=== PATIENT | male | born 1970 | race African-American/Black ===

== ENCOUNTER 2018-07-01 01:00 | Inpatient (IN) | payer MEDICAID ==
[2018-07-01] VITALS (7 sets, daily range): BP systolic 80–147; BP diastolic 30–88
[~2018-07-01] VITALS: Ht 177.8 cm; Wt 80.7 kg
--- NOTE | 2018-07-01 01:20 | NUR ---
Dr. Galindo evaluating patient
[2018-07-01] MEDS ORDERED: KETOROLAC 30 MG/ML VIAL IVP ONE (01:25)
[2018-07-01] MEDS ORDERED: NACL 0.9% 1,000 ML IV SCH ×3 (01:25→17:35)
--- NOTE | 2018-07-01 01:50 | NUR ---
48/M BIBA. BYSTANDER CALLED 911, PT WAS FOUND IN STREETS, PT C/O LOSS OF APPETITE, N/V/D, AND REPORTS BLE PAIN. PT AOX4, GCS 15, SKIN DUSKY DRY AND WARM, RR EVEN AND UNLABORED. LUNG SOUNDS CLEAR BL. BS ACTIVE X4, ABD FLAT FIRM NONTENDER. PT WITH HX OF SCABIES (5 YEARS AGO), ISOLATION PRECAUTIONS INITIATED. HX ANKYLOSING SPONDITITIS, CHROHN'S, IBD, COLON CA, COLON RESECTION (2010), SCABIES
--- NOTE | 2018-07-01 01:50 | NUR ---
PT TAKEN TO BED 1
--- NOTE | 2018-07-01 02:20 | NUR ---
EMT DOING EKG AT BEDSIDE.
--- NOTE | 2018-07-01 02:22 | NUR ---
EKG PERFORMED AT BEDSIDE. PT COVERED IN GOWN AND BLANKET DURING PROCEDURE
--- NOTE | 2018-07-01 02:33 | NUR ---
Pt report given to AMARIS PEDRO. Transfer of care at this time.
[2018-07-01 02:34] LABS: BASOPHILS # (AUTO) 0.1 K/uL (0.00-0.22); BASOPHILS % (AUTO) 0.7 % (0.0-2.0); EOSINOPHILS # (AUTO) 0.1 K/uL (0-0.4); EOSINOPHILS % (AUTO) 1.8 % (0.0-4.0); HEMATOCRIT 22.8 % (36-52); HEMOGLOBIN 7.8 g/dL (12.0-18.0); LYMPHOCYTES # (AUTO) 1.6 K/uL (2.0-11.5); LYMPHOCYTES % (AUTO) 20.2 % (20.5-51.1); MEAN CORPUSCULAR HEMOGLOBIN 39 pg (27-31); MEAN CORPUSCULAR HGB CONC 34 g/dL (33-37); MEAN CORPUSCULAR VOLUME 113.3 fL (80-94); MONOCYTES # (AUTO) 1.1 K/uL (0.8-1.0); MONOCYTES % (AUTO) 13.9 % (1.7-9.3); NEUTROPHILS # (AUTO) 5.1 K/uL (1.8-7.7); NEUTROPHILS % (AUTO) 63.4 % (42.2-75.2); RED BLOOD CELL COUNT(AUTO) 2.01 MIL/uL (4.20-6.10); WHITE BLOOD COUNT (AUTO) 8.1 K/uL (4.8-10.8)
[2018-07-01 02:48] LABS: PROTHROMBIN TIME 21.5 secs (10.8-13.4)
[2018-07-01 02:50] LABS: ANION GAP 19.2 (8-16); CARBON DIOXIDE 25.2 mmol/L (21-32); CREATININE 0.5 mg/dL (0.7-1.3); TOTAL BILIRUBIN 12.6 mg/dL (0.0-1.0)
[2018-07-01 02:55] LABS: POTASSIUM 1.4 mmol/L (3.5-5.1)
[2018-07-01 02:57] LABS: PLATELET COUNT (AUTO) 57 K/uL (140-450)
[2018-07-01 02:58] LABS: RED CELL DISTRIBUTION WIDTH 29.5 % (11.6-13.7)
[2018-07-01] MEDS ORDERED: NACL 0.9% 2,000 ML IV ONE (03:00)
[2018-07-01] MEDS ORDERED: POTASSIUM CHLORIDE 10 MEQ TABER PO ONE (03:00)
[2018-07-01 03:26] LABS: ACETAMINOPHEN < 0.5 ug/ml (10-30); SALICYLATE < 2.8 mg/dL (2.8-20.0)
[2018-07-01] MEDS ORDERED: PIPERACILLIN/TAZOBACTAM 3.375 GM in DEXTROSE 5% 50 ML IV ONE (03:40)
[2018-07-01] MEDS ORDERED: POTASSIUM CHL 30 MEQ/ D5-1/2NS 1,000 ML IV ONE (03:45)
[2018-07-01] MEDS ORDERED: PIPERACILLIN/TAZOBACTAM 3.375 GM VIAL IV ONE (04:02)
[2018-07-01] MEDS ORDERED: MORPHINE SULFATE 2 MG/ML SYR IVP PRN (04:10)
[2018-07-01] MEDS ORDERED: ONDANSETRON 4 MG/2 ML VIAL IM/IVP PRN (04:10)
[2018-07-01] MEDS ORDERED: DOCUSATE SODIUM 100 MG GELCAP PO PRN (04:10)
[2018-07-01] MEDS ORDERED: ACETAMINOPHEN 325 MG TAB PO PRN (04:10)
[2018-07-01] MEDS ORDERED: MAG SULF 2000 MG/WATER PREMIX 100 ML IV ONE (04:10)
[2018-07-01] MEDS ORDERED: HYDROcodone/APAP 7.5/325 MG 1 TAB PO PRN (04:10)
[2018-07-01] MEDS ORDERED: QUET200T PO (04:32)
[2018-07-01] MEDS ORDERED: LORazepam 2 MG/ML VIAL IVP PRN (04:35)
[2018-07-01 04:40] LABS: PHOSPHORUS 1.7 mg/dL (2.5-4.9); THYROID STIMULATING HORMONE 2.2 uIU/mL (0.34-3.74)
[2018-07-01 04:41] LABS: CHOL/HDL RATIO 7.4 (1-4.5)
--- NOTE | 2018-07-01 05:05 | NUR ---
RECEIVED PT FROM ER VIA HATTIE, PT AWAKE,ALERT X 4. PT NON-AMBULATORY DUE TO GENERALIZED WEAKNESS. RECEIVED WITH MG SO4 INFUSING WELL ON LEFT AC G 20. NO D5% KCL RUNNING AT THIS TIME. SKIN ASSESSMENT DONE .POC REVIEWED. ORIENTED TO UNIT. FALL RISK PROTOCOL IN PLACE. BED ALARM ON; CALL LIGHT W/IN REACH WILL CONTINUE TO MONITOR
--- NOTE | 2018-07-01 05:15 | NUR ---
Patient will be admitted to care of Dr. Brennan. Admited to TELE. Will go to room 113. Belongings list completed. Report to AMARIS Laguerre.
--- NOTE | 2018-07-01 05:44 | NUR ---
DR. GARCIA INTERVIEWED PT.FOR CT SCAN OF THE ABDOMEN ON TEMPORARY NPO UNTIL CT DONE.
[2018-07-01] MEDS: FOLIC ACID 5 MG/ML SYR IM SCH (06:00)
[2018-07-01] MEDS ORDERED: QUEtiapine FUMARATE 100 MG TAB PO SCH ×2 (06:00→21:00)
[2018-07-01] MEDS ORDERED: MAG SULF 2000 MG/WATER PREMIX 50 ML IV SCH ×3 (06:00→08:30)
[2018-07-01] MEDS ORDERED: THIAMINE 200 MG/2 ML VIAL IM SCH (06:00)
--- NOTE | 2018-07-01 06:18 | NUR ---
IVF D5 W/ KCL STILL ONGOING= NON ADMINISTERED NS AT 100ML/HR
[2018-07-01] MEDS ORDERED: SODIUM PHOS / POTASSIUM PHOS 1 PKT PDR PO SCH (07:00)
--- NOTE | 2018-07-01 07:10 | NUR ---
ENDORSED BEDSIDE REPORT TO AM SHIFT NURSEBRI FOR CONTINUITY OF CARE. PT ASLEEP IN BED RIGHT NOW, NO COMPLAINTS AT THIS TIME.NO SOB NOTED.
--- NOTE | 2018-07-01 07:11 | NUR ---
GOT BEDSIDE REPORT FROM AMARIS DELGADO. PATIENT ON TELE MONITOR AND CONTACT PRECAUTIONS FOR POSSIBLE SCABIES. GENERALIZED SCARS AND FLAKY SKIN ON BACK, BUE, BLE. PATIENT UNABLE TO AMBULATE D/T GENERALIZED WEAKNESS. FALL RISK PROTOCOL IN PLACE. IV ON L AC 20 G INFSUSING D5 KCL AT 100. IV ASYMPTOMATIC PATENT AND INTACT. BED IN LOW POSITION, CALL LIGHT WITHIN REACH. WILL CONTINUE TO MONITOR.
[2018-07-01 07:14] LABS: HEMOGLOBIN 7.9 g/dL (12.0-18.0); MEAN CORPUSCULAR HEMOGLOBIN 39 pg (27-31); MEAN CORPUSCULAR HGB CONC 34 g/dL (33-37); RED BLOOD CELL COUNT(AUTO) 2.04 MIL/uL (4.20-6.10); RED CELL DISTRIBUTION WIDTH 29.5 % (11.6-13.7); WHITE BLOOD COUNT (AUTO) 6.9 K/uL (4.8-10.8)
[2018-07-01 07:47] LABS: ANION GAP 18.5 (8-16); CREATININE 0.7 mg/dL (0.7-1.3)
[2018-07-01 07:47] LABS: MEAN CORPUSCULAR VOLUME 113.1 fL (80-94); PLATELET COUNT (AUTO) 50 K/uL (140-450)
[2018-07-01 07:48] LABS: LYMPHOCYTES % (MANUAL) 12 % (20-46)
[2018-07-01 07:49] LABS: EOSINOPHILS % (MANUAL) 2 % (0-4); MONOCYTES % (MANUAL) 9 % (5-12)
[2018-07-01 07:51] LABS: PHOSPHORUS 1.7 mg/dL (2.5-4.9)
[2018-07-01 07:55] LABS: POTASSIUM 1.5 mmol/L (3.5-5.1)
[2018-07-01] MEDS ORDERED: MULTIVITAMIN-12 10 ML in NACL 0.9% 1,000 ML IV SCH (08:00)
[2018-07-01] MEDS ORDERED: POTASSIUM CHLORIDE 10 MEQ TABER PO SCH ×2 (08:08→17:00)
[2018-07-01] MEDS ORDERED: POTASSIUM CHLORIDE 40 MEQ, LIDOCAINE 1% 25 MG in NACL 0.9% 250 ML IV SCH ×2 (08:30→12:30)
--- NOTE | 2018-07-01 08:30 | NUR ---
ATTEMPTED TO GIVE POTASSIUM PO, BUT PATIENT SPIT ONE TABLET OUT AND STATED HE CANNOT TAKE PILLS. HELD FOLIC ACID, MULTIVITAMINS, AND VIT B1 PER PHARMACIST ORDER
--- NOTE | 2018-07-01 08:31 | NUR ---
FOLIC ACID AND THIAMINE HELD. FIELD PROFESSIONAL NURSE ENDORSED TO ME THAT MED WAS UNAVAILABLE IN [facility].
--- NOTE | 2018-07-01 08:56 | NUR ---
PATIENT HAS BEEN SCREENED AND CATEGORIZED HIGH NUTRITION RISK. PATIENT WILL BE SEEN WITHIN 1-2 DAYS OF ADMISSION. 07/01/18-07/02/[address]
[2018-07-01] MEDS ORDERED: MULTIVITAMIN/MINERALS 1 TAB PO SCH ×2 (09:00)
[2018-07-01] MEDS ORDERED: THIAMINE 100 MG TAB PO SCH ×2 (09:00→16:00)
[2018-07-01] MEDS: chlordiazePOXIDE 25 MG CAP PO SCH ×3 (09:00→16:37)
[2018-07-01] MEDS ORDERED: PERMETHRIN 1% 60 ML BTL TP SCH (09:00)
[2018-07-01] MEDS ORDERED: FOLIC ACID 1 MG TAB PO SCH ×2 (09:00→16:00)
[2018-07-01] MEDS ORDERED: POTASSIUM CHLORIDE 20% 40 MEQ/15 ML UDC PO SCH (10:00)
--- NOTE | 2018-07-01 10:05 | NUR ---
ADMINISTERED SCHEDULED MEDS. PATIENT TOLERATED WELL. PHARMACIST GI SAID DR. TAMAYO WANTED TO FIRST GIVE ALL THE POTASSIUM MEDS FIRST SINCE HIS K LEVEL IS 1.5
[2018-07-01] MEDS ORDERED: PERMETHRIN 5% 60 GM TUBE TP SCH (11:00)
--- NOTE | 2018-07-01 13:05 | NUR ---
CLEANED PATIENTS SHEETS AND OTHER SOILED LINEN. PATIENT HAD BM. PATIENT CONTINUES TO HAVE BM. WILL CONTINUE TO MONITOR.
--- NOTE | 2018-07-01 14:46 | NUR ---
PATIENT SLEEPING. ON 2 L O2 VIA NC, NO DISTRESS NOTED. WILL CONTINUE TO MONITOR.
[2018-07-01] MEDS ORDERED: DEXTROSE 50% 50 ML SYR IVP SCH (15:30)
[2018-07-01] MEDS ORDERED: LORazepam 2 MG/ML VIAL IM/IVP PRN (15:45)
[2018-07-01] MEDS ORDERED: MULTIVITAMIN 1 TAB PO SCH (16:00)
--- NOTE | 2018-07-01 16:02 | NUR ---
07/01/18 RD INITIAL ASSESSMENT COMPLETED PLEASE REFER TO NUTRITION ASSESSMENT UNDER CARE ACTIVITY FOR ESTIMATED NUTRITIONAL NEEDS. 1. CONTINUE REGULAR DIET TOLERATED 2. IF PO INTAKE IS > 75% CONSIDER HEPATIC DIET 3. IBD EDUCATION WAS PROVIDED 4. ENCOURAGE PO INTAKE AND MONITOR FOR REFEEDING SYNDROME 5. RD TO FOLLOW-UP 2-3 DAYS, HIGH RISK MARITZA TRAN, RD
[2018-07-01 16:25] LABS: BASOPHILS % (AUTO) 0.9 % (0.0-2.0); EOSINOPHILS # (AUTO) 0.2 K/uL (0-0.4); EOSINOPHILS % (AUTO) 3.9 % (0.0-4.0); HEMATOCRIT 21.3 % (36-52); HEMOGLOBIN 7.2 g/dL (12.0-18.0); LYMPHOCYTES % (AUTO) 19.9 % (20.5-51.1); MEAN CORPUSCULAR HEMOGLOBIN 39 pg (27-31); MEAN CORPUSCULAR HGB CONC 34 g/dL (33-37); MONOCYTES # (AUTO) 0.5 K/uL (0.8-1.0); MONOCYTES % (AUTO) 10.7 % (1.7-9.3); NEUTROPHILS # (AUTO) 3.1 K/uL (1.8-7.7); NEUTROPHILS % (AUTO) 64.6 % (42.2-75.2); PLATELET COUNT (AUTO) 42 K/uL (140-450); RED BLOOD CELL COUNT(AUTO) 1.87 MIL/uL (4.20-6.10); RED CELL DISTRIBUTION WIDTH 29.4 % (11.6-13.7); WHITE BLOOD COUNT (AUTO) 4.8 K/uL (4.8-10.8)
[2018-07-01] MEDS ORDERED: PHYTONADIONE 10 MG in NACL 0.9% 50 ML IV SCH (16:30)
[2018-07-01 16:37] LABS: ANION GAP 20.1 (8-16); CARBON DIOXIDE 22.3 mmol/L (21-32); CREATININE 1.2 mg/dL (0.7-1.3)
[2018-07-01 16:38] LABS: POTASSIUM 2.4 mmol/L (3.5-5.1)
--- NOTE | 2018-07-01 16:38 | NUR ---
CRUSHED SCHEDULED MEDS AND MIXED WITH APPLE SAUCE. PATIENT TOLERATED WELL.
--- NOTE | 2018-07-01 16:39 | NUR ---
DR. TAMAYO AT BEDSIDE ASSESSING PATIENT AND TELLING HIM IMPORTANCE OF TAKING K MEDICATIONS FOR HIS HEART. DR STATED TO START ANOTHER IV ON PATIENT.
[2018-07-01] MEDS: BLOOD GLUCOSE MONITORING 1 DEV DEV FS SCH ×4 (16:48→19:30)
[2018-07-01 16:56] LABS: MAGNESIUM 1.7 mg/dL (1.8-2.4); PHOSPHORUS 1.6 mg/dL (2.5-4.9)
[2018-07-01] MEDS ORDERED: LACTULOSE 20 GM/30 ML UDC PO SCH (17:10)
--- NOTE | 2018-07-01 17:26 | NUR ---
BP 90/57 (66), HR 95 AND BLOOD SUGAR OF 128. EKG CURRENTLY BEING DONE.
--- NOTE | 2018-07-01 18:44 | NUR ---
PATIENT CURRENTLY ON BEDSIDE COMMODE. WILL COLLECT STOOL SAMPLE AND URINE
--- NOTE | 2018-07-01 19:25 | NUR ---
TRANSFERRED PT TO ICU ROOM 8. GAVE BEDSIDE REPORT TO AMARIS CORNELL. PATIENT ENDORSED IN STABLE CONDITION. CONSENT FORM FOR PICC LINE INSERTION AND BLOOD TRANSFUSION GIVEN TO YONNY. STATED SHE RECEIVED THEM. PATIENT BELONGINGS SENT WITH PATIENT AND MEDICATIONS IN CASSETTE. L AC 20 G ASYMPTOMATIC PATENT AND INTACT. ENDORSED BLOOD TRANSFUSION HAS NOT BEEN GIVEN AND FERRLECIT BECAUSE VIT K WAS STILL INFUSING AT TIME. Addendum: 07/01/18 at 1956 by Greta Iqbal RN STOOL SAMPLE AND URINE SAMPLE SENT TO LAB.
--- NOTE | 2018-07-01 19:25 | NUR ---
RECEIVED PT FROM [facility]. PT AOX4. ABLE TO VERBALIZE NEEDS FOLLOWS COMMANDS. ON CONTACT PRECAUTIONS FOR SCABIES. ON ROOM AIR. EVEN UNLABORED BREATHING. ST ON MONITOR. DENIES PAIN. BOWEL SOUNDS ACTIVE X4 QUADRANTS. HISTORY OF CROHNS DISEASE. WATERY STOOLS NOTED ON ADMISSION. CONTINENT TO BOWEL AND BLADDER. RAC 20 G IV NOTED. DRESSING INTACT. MULTIPLE BRUISES TO UPPER AND LOWER EXTREMITIES. BED IN LOWST POSITION WILL CONTINUE TO MONITOR.
--- NOTE | 2018-07-01 19:27 | NUR ---
PT BELONGINGS CONSIST OF LARGE PLASTIC BAG. PT CONTINUES TO EAT SUNFLOWER SEEDS DESPITE BEING ON FULL LIQUID DIET. DR. GARCIA MADE AWARE
[2018-07-01] MEDS: SODIUM FERRIC GLUCONATE 125 MG in NACL 0.9% 100 ML IV SCH (20:13)
--- NOTE | 2018-07-01 20:13 | NUR ---
PT HAD LARGE BM AT THIS TIME. PT CLEANED AND REPOSITIONED
[2018-07-01 20:17] LABS: APPEARANCE,URINE HAZY (CLEAR); BILIRUBIN,URINE 3+ (NEGATIVE); BLOOD, URINE 1+ (NEGATIVE); COLOR,URINE BROWN (YELLOW); LEUKOCYTE ESTERASE ,URINE TRACE (NEGATIVE); NITRITE, URINE POSITIVE (NEGATIVE); PH,URINE 6.5 (5.0-9.0); UGLUCOSE TRACE (NEGATIVE)
[2018-07-01 20:33] LABS: WBC,URINE 16-25 (MOD) /HPF (0-5)
[2018-07-01 20:34] LABS: HYALINE CASTS, URINE 0-10 /LPF (None Seen)
[2018-07-01 20:42] LABS: BARBITURATE, URINE NEG. ng/ml (NEG <=200); BENZODIAZEPINE, URINE NEG. ng/mL (NEG <=200); CANNABINOID, URINE NEG. ng/mL (NEG <=50); COCAINE, URINE NEG. ng/mL (NEG <=300); OPIATE, URINE NEG. ng/mL (NEG <=2000); PHENCYCLIDINE SCREEN,URINE NEG. ng/mL (NEG <=25)
[2018-07-01] MEDS: LACTULOSE 20 GM/30 ML UDC PO SCH (21:00)
--- NOTE | 2018-07-01 21:02 | NUR ---
PT REQUESTS TO USE BEDPAN AT THIS TIME
[2018-07-01] MEDS ORDERED: MULTIVITAMIN-12 10 ML, THIAMINE 100 MG, FOLIC ACID 1 MG in NACL 0.9% 1,000 ML IV SCH (21:30)
--- NOTE | 2018-07-01 21:33 | NUR ---
DR. HERRMANN AT BEDSIDE AT THIS TIME. UPDATED ON PTS CURRENT CONDITION
--- NOTE | 2018-07-01 21:40 | NUR ---
PT HAD ANOTHER BM AT THIS TIME. LIQUID STOOL NOTED. PT CLEANED AND LINENS CHANGED.
--- NOTE | 2018-07-01 22:06 | NUR ---
PICC NURSE AT BEDSIDE AT THIS TIME
[2018-07-01] MEDS ORDERED: cefTRIAXone 1,000 MG VIAL ONE (22:39)
--- NOTE | 2018-07-01 22:48 | NUR ---
PT HAD A LARGE WATERY BM AT THIS TIME. PT CLEANED AND PERICARE PROVIDED. LINENS CHANGED AT THIS TIME.
[2018-07-01 23:07] LABS: BASOPHILS % (AUTO) 0.9 % (0.0-2.0); EOSINOPHILS # (AUTO) 0.2 K/uL (0-0.4); EOSINOPHILS % (AUTO) 3.8 % (0.0-4.0); HEMATOCRIT 22.3 % (36-52); HEMOGLOBIN 7.5 g/dL (12.0-18.0); LYMPHOCYTES # (AUTO) 1.1 K/uL (2.0-11.5); LYMPHOCYTES % (AUTO) 21.1 % (20.5-51.1); MEAN CORPUSCULAR HEMOGLOBIN 38 pg (27-31); MEAN CORPUSCULAR HGB CONC 34 g/dL (33-37); MEAN CORPUSCULAR VOLUME 113.9 fL (80-94); MONOCYTES # (AUTO) 0.5 K/uL (0.8-1.0); MONOCYTES % (AUTO) 9.3 % (1.7-9.3); NEUTROPHILS # (AUTO) 3.3 K/uL (1.8-7.7); NEUTROPHILS % (AUTO) 64.9 % (42.2-75.2); PLATELET COUNT (AUTO) 48 K/uL (140-450); RED BLOOD CELL COUNT(AUTO) 1.95 MIL/uL (4.20-6.10); RED CELL DISTRIBUTION WIDTH 29.4 % (11.6-13.7); WHITE BLOOD COUNT (AUTO) 5.1 K/uL (4.8-10.8)
[2018-07-01 23:24] LABS: ANION GAP 14.8 (8-16); CARBON DIOXIDE 26.7 mmol/L (21-32); CREATININE 1.1 mg/dL (0.7-1.3)
--- NOTE | 2018-07-01 23:30 | NUR ---
PT STARTED TRANSFUSION OF 1 UNIT PRBC. NO ADVERSE REACTIONS NOTED.
[2018-07-02] VITALS (11 sets, daily range): BP systolic 108–141; BP diastolic 69–87
--- NOTE | 2018-07-02 00:39 | NUR ---
PT CONTINUES TO BE NONCOMPLIANT AND REMOVES CARDIAC LEADS. EXPLAINED RISK VS. BENEFITS X 3. PT STILL REFUSES.
[2018-07-02 00:45] LABS: POTASSIUM 2.5 mmol/L (3.5-5.1)
[2018-07-02] MEDS: DEXTROSE 10% IV SCH ×2 (02:30→09:08)
[2018-07-02] MEDS: POTASSIUM CHLORIDE IV SCH ×2 (02:30→09:08)
[2018-07-02] MEDS: NACL IV SCH ×2 (02:30→09:08)
--- NOTE | 2018-07-02 02:30 | NUR ---
BLOOD TRANSFUSION COMPLETE. 1 UNIT PRBC INFUSED. NO ADVERSE REACTIONS NOTED
--- NOTE | 2018-07-02 02:40 | NUR ---
DR. GARCIA INFORMED OF BLOOD TRANSFUSION COMPLETED. WILL INCLUDE CBC DRAW IN AM BLOOD DRAWS
--- NOTE | 2018-07-02 05:00 | NUR ---
RT AT BEDSIDE FOR LAB DRAWS
--- NOTE | 2018-07-02 05:30 | NUR ---
AM CARE PROVIDED AT THIS TIME
--- NOTE | 2018-07-02 06:36 | NUR ---
BLOOD SUGAR 205 AT THIS TIME. NO COVERAGE NEEDED FOR INSULIN
--- NOTE | 2018-07-02 06:57 | NUR ---
DR. TAMAYO AT BEDSIDE AT THIS TIME. UPDATED ON PTS CURRENT CONDITION. WILL CONTINUE TO FOLLOW UP ANY ADDITIONAL ORDERS
[2018-07-02 07:21] LABS: BASOPHILS % (AUTO) 0.8 % (0.0-2.0); EOSINOPHILS # (AUTO) 0.2 K/uL (0-0.4); EOSINOPHILS % (AUTO) 4.6 % (0.0-4.0); HEMATOCRIT 25.4 % (36-52); HEMOGLOBIN 8.7 g/dL (12.0-18.0); LYMPHOCYTES # (AUTO) 0.9 K/uL (2.0-11.5); LYMPHOCYTES % (AUTO) 21.5 % (20.5-51.1); MEAN CORPUSCULAR HEMOGLOBIN 36 pg (27-31); MEAN CORPUSCULAR HGB CONC 34 g/dL (33-37); MEAN CORPUSCULAR VOLUME 105.6 fL (80-94); MONOCYTES # (AUTO) 0.3 K/uL (0.8-1.0); MONOCYTES % (AUTO) 7.2 % (1.7-9.3); NEUTROPHILS # (AUTO) 2.6 K/uL (1.8-7.7); NEUTROPHILS % (AUTO) 65.9 % (42.2-75.2); PLATELET COUNT (AUTO) 32 K/uL (140-450); RED BLOOD CELL COUNT(AUTO) 2.41 MIL/uL (4.20-6.10); RED CELL DISTRIBUTION WIDTH 30.5 % (11.6-13.7)
[2018-07-02 07:30] LABS: ANION GAP 11.6 (8-16); CARBON DIOXIDE 27.6 mmol/L (21-32); CREATININE 0.9 mg/dL (0.7-1.3)
[2018-07-02] MEDS ORDERED: NACL 0.9% 1,000 ML IV SCH (07:30)
[2018-07-02] MEDS ORDERED: BLOOD GLUCOSE MONITORING 1 DEV DEV FS SCH (07:30)
[2018-07-02 07:38] LABS: MAGNESIUM 1.8 mg/dL (1.8-2.4)
[2018-07-02 07:42] LABS: ALBUMIN 0.9 g/dL (3.4-5.0); BILIRUBIN,DIRECT 9.7 mg/dL (0.0-0.3); TOTAL BILIRUBIN 11.7 mg/dL (0.0-1.0)
[2018-07-02 07:51] LABS: POTASSIUM 2.2 mmol/L (3.5-5.1)
--- NOTE | 2018-07-02 08:00 | NUR ---
RECEIVED PATIENT IN BED.ENGINEERING CALLED AND WILL ADJUST THE ROOM BECAUSE ITS COLD .APPLIED 3 BLANKET TO PT.RIGHT UPPER PICC LINE WITH IVF WITH D10 AND WITH POTASSIUM 40 MEQ ONGOING.PT IS ALERT TO PERSON AND PLACE BUT NOT TO DATE AND SITUATION.REORIENTED.PT CAN VERBALIZED HIS NEED BUT KINDLY SLOW IN RESPONDING.NSR ON THE MONITOR.PT USES THE URINAL.
[2018-07-02] MEDS: chlordiazePOXIDE 25 MG CAP PO SCH ×2 (08:10→13:36)
[2018-07-02] MEDS: SPIRONOLACTONE 50 MG TAB PO SCH (08:10)
[2018-07-02] MEDS: FOLIC ACID 1 MG TAB PO SCH (08:11)
[2018-07-02] MEDS: POTASSIUM CHLORIDE 20% 40 MEQ/15 ML UDC PO SCH (08:12)
[2018-07-02] MEDS: THIAMINE 100 MG TAB PO SCH (08:20)
[2018-07-02] MEDS: MULTIVITAMIN/MINERALS 1 TAB PO SCH (08:20)
[2018-07-02] MEDS: LACTULOSE 20 GM/30 ML UDC PO SCH (08:21)
--- NOTE | 2018-07-02 08:30 | NUR ---
PT WITH DRY SCAB 1 CM X 1 CM AT RIGHT HIP WITH BROWNISH DISCOLORATION AROUND IT .MILLIE INTACT .RIGHT BUTTOCKS WITH MULTIPLE WOUND WITH LARGEST 1.2 CM X 0.8.CM RED IN COLOR .LEFT BUTTOCK WITH 0.5 X 1.2 CM -RED IN COLOR.LEFT SECOND TOE SCAB 0.5 X 0.5 CM.BLACK IN COLOR.DR TAMAYO MADE AWARE AND WILL PUT WOUND CONSULT.NO DRAINAGE NOTED TO ALL WOUNDS.
[2018-07-02] MEDS ORDERED: THIAMINE 100 MG TAB PO SCH (09:00)
--- NOTE | 2018-07-02 09:00 | NUR ---
DR TAMAYO MADE AWARE PT REFUSED TO SIGN CONSENT FOR CT SCAN CONSENT.WILL TRY AGAIN LATER
[2018-07-02] MEDS ORDERED: SODIUM PHOS / POTASSIUM PHOS 1 PKT PDR PO SCH (09:30)
[2018-07-02] MEDS ORDERED: POTASSIUM CHLORIDE 40 MEQ, LIDOCAINE 1% 25 MG in NACL 0.9% 250 ML IV SCH (10:00)
--- NOTE | 2018-07-02 10:00 | NUR ---
PT REFUSED TO SIGN CONSENT OF CT SCAN .DR TAMAYO AWARE
[2018-07-02 10:07] LABS: TRANSFERRIN 89 mg/dL (200-370)
--- NOTE | 2018-07-02 11:05 | NUR ---
WOUND CARE EVALUATION NOTE: REASON FOR EVALUATION: SACRALCOCCYX WOUND SKIN ASSESSMENT DONE WITH PRIMARY RN WITH THIS 48 Y/O MALE PT ADMITTED TO [facility] WITH INITIAL DX OF BILATERAL LEG SWELLING. PAST MEDICAL HX INCLUDES, ANKYLOSING SPONDYLITIS, CHRONS�S, IBD, AND COLON CANCER IN REMISSION 2010. ALL ABOVE INFORMATION OBTAINED FROM ADMISSION H&P AND PER DR. TAMAYO HX OF SCABIES. PT IS ASLEEP MOST OF TIME DURING ASSESSMENT. WAKE UP WHEN REPOSITIONING AND C/O ARTHRITIS PAIN TO ELBOWS AND SHOULDERS. SKIN IS WARM AND DRY, MULTIPLES PIN POINTS DRY SCABS FROM NECK DOWN OF HIS BODY. BLE FEW HAIR GROWTH, +1 EDEMA. BILATERAL DORSAL PEDAL PULSES PRESENT AND NORMAL. CAPILLARY REFILLED < 2 SEC. X 10 TOES. FUNFAL LIKE TOE NAILS, THICK CALLUS BILATERAL HEELS AND DEBRIS NOTICES ON INTERSPACES PLAN OF CARE AND PRESSURE INJURY PREVENTIONS DISCUSSED WITH PRIMARY RN. INTEGUMENTARY: -INCONTINENT ASSOCIATED DERMATITIS TO RIGHT AND LEFT BUTTOCKS REDNESS, AND RADHA ANAL WITH MULTIPLE EROSIONS, THE LARGEST 1.2X0.8X0.1 CM, WEND BED ARE RED, MOIST, NO ODOR. -PRESSURE INJURY UN-STAGEABLE TO RIGHT TROCHANTER 1X1 CM, BROWN SCAB, RADHA-WOUND SKIN INTACT WITH SURROUNDING DARK BROWN DISCOLORATION INDICATED FURTHER DAMAGE -LEFT FOOT 2ND DIGIT 0.5X0.5 BROWN SCAB, RADHA-WOUND SKIN INTACT -SACRALCOCCYX BLANCHABLE REDNESS RECOMMENDATIONS: -CLEANSE RIGHT AND LEFT BUTTOCKS REDNESS, AND RADHA-ANAL AREAS WITH SOAP AND WATER, PAT DRY AND APPLY Z-GUARD, BID AND PRN IF SOILING -CLEANSE SACRALCOCCYX WITH SOAP AND WATER PAT. DRY, APPLY Z GUARD AND COVER WITH OPTIFOAM QD AND PRN IF SOILED -PAINT LEFT HIP SCAB WITH BETADINE SOLUTION BIDWC AND LEAVE IT OPEN TO AIR -OFFLOAD BILATERAL HEELS BY PLACING PILLOWS UNDER CALVES UNLESS OTHERWISE CONTRAINDICATED -PRESSURE REDISTRIBUTION SURFACE THERAPY -TURN AND REPOSITION Q2H, OFFLOAD SACRALCOCCYX BY TURNING RIGHT AND LEFT -MONITOR SKIN CONDITION EACH TIME PT IS REPOSITIONS -CONTINUE TO FOLLOW RD RECOMMENDATIONS ALL ABOVE RECOMMENDATIONS DISCUSSED WITH PRIMARY RN WILL FOLLOW UP PT Q7-10 DAYS. PLEASE CONTACT WOUND CARE NURSE FOR ANY QUESTION AND CHANGE OF WOUND CONDITION. Addendum: 07/02/18 at 1622 by Doyle Mckeon RN (Grace) CLARIFY : WRONG ENTRY TO SACRALCOCCYX. NO OPEN ACTIVE WOUND, APPLY OPTIFOAM PREVENTION. Addendum: 07/02/18 at 1658 by Doyle Mckeon RN (Grace) CLARIFICATION: -PAINT RIGHT HIP SCAB WITH BETADINE SOLUTION BIDWC AND LEAVE IT OPEN TO AIR
[2018-07-02] MEDS ORDERED: POTASSIUM PHOSPHATE 15 MM in NACL 0.9% 250 ML IV SCH (11:30)
--- NOTE | 2018-07-02 12:40 | NUR ---
SEEN BY DR. ANDRES, AWARE THAT PT. NOT SIGN THE CONSENT FOR CT.SCAN WITH CONTRAS.
--- NOTE | 2018-07-02 12:48 | NUR ---
Music Grapher Note: I met with patient at bedside. He appeared drowsy. He mumbled when he talked, therefore, it was difficult to understand him at times. He stated he has been homeless between 6-7 years. He reported he has been staying in the streets during those years. He told me he does not have any family members nor has anyone we can contact in case of an emergency. Band Attacher and/or Die Hardener will meet with patient at another time to obtain additional information and offer him community resources.
[2018-07-02] MEDS: RIFAXIMIN 550 MG TAB PO SCH ×2 (13:36→21:07)
[2018-07-02] MEDS: MUPIROCIN CA NASAL 2% 1GM TUBE NS SCH (13:37)
[2018-07-02] MEDS: CHLORHEXADINE GLUC 2% CLOTH TP SCH (13:37)
[2018-07-02] MEDS ORDERED: PROBIOTIC SCREEN 1 EA MISC MC PRN (13:40)
[2018-07-02] MEDS ORDERED: LORazepam 2 MG/ML VIAL IM/IVP PRN (16:25)
[2018-07-02] MEDS: SODIUM FERRIC GLUCONATE 125 MG in NACL 0.9% 100 ML IV SCH (17:11)
[2018-07-02] MEDS: POTASSIUM CHL 20MEQ/D5-NS 1,000 ML IV SCH (17:11)
--- NOTE | 2018-07-02 18:50 | NUR ---
NO CO PAIN NOR ANY DISCOMFORT.PT HAD LOOSE STOOL BROWNISH IN COLOR LARGE IN AMOUNT.CLEANED PATIENT.OPTIFOAM BEING APPLIED BUT PT REFUSED TO STAY IN ONE POSITION FOR A LONG TIME.WILL TRY LATER.
[2018-07-02 18:53] LABS: ANION GAP 11.1 (8-16); CREATININE 0.7 mg/dL (0.7-1.3); POTASSIUM 3.1 mmol/L (3.5-5.1)
--- NOTE | 2018-07-02 19:19 | NUR ---
REPORT GIVEN TO [place].ENDORSED TO PUT OPTIFOAM LATER WHEN PT AGREED.
--- NOTE | 2018-07-02 19:20 | NUR ---
RECEIVED REPORT FROM AM SHIFT. PT A0X4 ABLE TO VERBALIZE NEEDS. ON CONTACT PRECAUTIONS FOR MRSA AND HX SCABIES. AFEBRILE. LUNG SOUNDS CLEAR. EVEN UNLABORED BREATHING. SR ON MONITOR. DENIES CHEST PAIN. NO EDEMA. ON REGULAR DIET. ABD SOFT NONTENDER. BOWEL SOUNDS ACTIVE X 4 QUADS. DIARRHEA NOTED. CONTINENT TO URINE. IV SITE JONI PICC. DRESSING INTACT. GENERALIZED WEAKNESS NOTED. SKIN NON INTACT. BILAT BUTTOCKS OPEN WOUND. MULTIPLE SCABS THROUGHOUT BODY. BED IN LOWEST POSITION. CALL LIGHT WITHIN REACH. WILL CONTINUE TO MONITOR.
--- NOTE | 2018-07-02 19:45 | NUR ---
REGULAR DIET. TRAY AT BEDSIDE AT THIS TIME.
[2018-07-02] MEDS ORDERED: RIFAXIMIN 550 MG TAB PO SCH (21:00)
[2018-07-02] MEDS ORDERED: chlordiazePOXIDE 25 MG CAP PO SCH (21:00)
[2018-07-02] MEDS ORDERED: PANTOPRAZOLE 40 MG INJ VIAL IVP SCH (21:00)
[2018-07-02] MEDS: PANTOPRAZOLE 40 MG INJ VIAL IVP SCH (21:08)
--- NOTE | 2018-07-02 22:06 | NUR ---
PT RESTING QUIETLY IN BED. NO SIGNS OF ACUTE DISTRESS AT THIS TIME. DENIES PAIN
[2018-07-03] VITALS: BP 106/84
[2018-07-03] MEDS: Z-GUARD PASTE TP SCH ×2 (00:24→13:00)
[2018-07-03] MEDS: GAUZE TP SCH ×2 (00:24→13:00)
[2018-07-03] MEDS: HYDRAGUARD CREAM TP SCH ×2 (00:24→13:00)
--- NOTE | 2018-07-03 01:30 | NUR ---
PT RESTING QUIETY. DENIES PAIN. PICC LINE DRY AND INTACT.
--- NOTE | 2018-07-03 03:12 | NUR ---
PT AWAKE CONTINUES TO REMOVE CARDIAC LEADS, PULSE OX, AND BP CUFF. EXPLAINED RISK VS. BENEFITS X3. PT STILL REFUSES. DENIES PAIN.
[2018-07-03 04:00] VITALS: BP 161/76
[2018-07-03] MEDS: POTASSIUM CHL 20MEQ/D5-NS 1,000 ML IV SCH ×3 (04:30→16:58)
--- NOTE | 2018-07-03 05:00 | NUR ---
LAB AT BEDSIDE FOR AM BLOOD DRAWS. BLOOD EMORY VIA PICC LINE. PT TOLERATED WELL. ASEPTIC TECHNIQUE OBSERVED.
--- NOTE | 2018-07-03 05:30 | NUR ---
AM CARE PROVIDED AT THIS TIME. ZGUARD APPLIED TO BILAT BUTTOCKS. BED IN LOWEST POSITION. WILL CONTINUE TO MONITOR.
--- NOTE | 2018-07-03 06:37 | NUR ---
PT ABLE TO VERBALIZE NEEDS. AOX4. SLUGGISH IN RESPONSES.
--- NOTE | 2018-07-03 06:55 | NUR ---
TRANSFERRED PT TO MST 113. NO SIGNS OF ACUTE DISTRESS AT THIS TIME
--- NOTE | 2018-07-03 07:03 | NUR ---
RECEIVED BEDSIDE REPORT FROM ICU NURSE. PT STABLE, AWAKE, AND ALERT AND ORIENTED X3. NO SIGNS OF DISTRESS NOTED. DENIES PAIN OR SOB. NO REDNESS, SWELLING, OR INFLAMMATION NOTED ON IV SITE. CALL STILES WITHIN REACH. BED IN LOWEST POSITION, BED ALARM ON. SAFETY MEASURES IN PLACE. PLAN OF CARE REVIEWED.
[2018-07-03 07:06] LABS: BASOPHILS % (AUTO) 0.6 % (0.0-2.0); EOSINOPHILS # (AUTO) 0.1 K/uL (0-0.4); EOSINOPHILS % (AUTO) 2.5 % (0.0-4.0); HEMOGLOBIN 9.7 g/dL (12.0-18.0); LYMPHOCYTES # (AUTO) 0.7 K/uL (2.0-11.5); LYMPHOCYTES % (AUTO) 21.3 % (20.5-51.1); MEAN CORPUSCULAR HEMOGLOBIN 37 pg (27-31); MEAN CORPUSCULAR HGB CONC 35 g/dL (33-37); MEAN CORPUSCULAR VOLUME 105.8 fL (80-94); MONOCYTES # (AUTO) 0.3 K/uL (0.8-1.0); MONOCYTES % (AUTO) 9.4 % (1.7-9.3); NEUTROPHILS # (AUTO) 2.1 K/uL (1.8-7.7); NEUTROPHILS % (AUTO) 66.2 % (42.2-75.2); PLATELET COUNT (AUTO) 22 K/uL (140-450); RED BLOOD CELL COUNT(AUTO) 2.65 MIL/uL (4.20-6.10); RED CELL DISTRIBUTION WIDTH 31.2 % (11.6-13.7); WHITE BLOOD COUNT (AUTO) 3.2 K/uL (4.8-10.8)
[2018-07-03 07:23] LABS: ANION GAP 10.9 (8-16); CARBON DIOXIDE 26.4 mmol/L (21-32); CREATININE 0.6 mg/dL (0.7-1.3); MAGNESIUM 1.7 mg/dL (1.8-2.4); PHOSPHORUS 1.1 mg/dL (2.5-4.9); POTASSIUM 3.3 mmol/L (3.5-5.1)
[2018-07-03 08:00] VITALS: BP 99/75
[2018-07-03] MEDS: PANTOPRAZOLE 40 MG INJ VIAL IVP SCH ×3 (09:00→23:15)
[2018-07-03] MEDS: SPIRONOLACTONE 50 MG TAB PO SCH (09:00)
[2018-07-03] MEDS: FOLIC ACID 1 MG TAB PO SCH ×2 (09:00→10:56)
[2018-07-03] MEDS: POTASSIUM CHLORIDE 20% 40 MEQ/15 ML UDC PO SCH ×2 (09:00→10:56)
[2018-07-03] MEDS: MULTIVITAMIN/MINERALS 1 TAB PO SCH ×2 (09:00→10:56)
[2018-07-03] MEDS: THIAMINE 100 MG TAB PO SCH ×2 (09:00→10:57)
[2018-07-03] MEDS: RIFAXIMIN 550 MG TAB PO SCH ×3 (09:00→23:12)
--- NOTE | 2018-07-03 09:30 | NUR ---
TEMPERATURE OF 85.[address] TAMAYO. PHYSICIAN WILL SEE PT.
--- NOTE | 2018-07-03 09:43 | NUR ---
07/03/18 RD FOLLOW UP COMPLETED PLEASE REFER TO NUTRITION PROGRESS NOTE UNDER CARE ACTIVITY FOR ESTIMATED NUTRITION NEEDS. RD RECOMMENDATIONS: 1.RECOMMEND INITIATING VITAMIN C AND ZINC FOR WOUND HEALING SUPPORT. 2.CONTINUE REGULAR DIET TOLERATED. 3.IF PO INTAKE IS > 75% CONSIDER CHANGING DIET TO HEPATIC DIET. 4.ENCOURAGE PO INTAKE AND MONITOR FOR REFEEDING SYNDROME. 5.RD TO FOLLOW-UP 2-3 DAYS, HIGH RISK. JONNY CARMONA, , RDN
--- NOTE | 2018-07-03 10:00 | NUR ---
PATIENT REFUSED SCHEDULED MEDICATIONS. DR BELKIS INGRAM.
[2018-07-03] MEDS ORDERED: POTASSIUM PHOSPHATE 15 MM in NACL 0.9% 250 ML IV ONE (11:15)
[2018-07-03] MEDS ORDERED: MAG SULF 2000 MG/WATER PREMIX 50 ML IV ONE (11:15)
[2018-07-03 12:00] VITALS: BP 94/66
[2018-07-03] MEDS ORDERED: POTASSIUM PHOSPHATE 15 MM in NACL 0.9% 250 ML IV SCH ×2 (12:52→12:55)
[2018-07-03] MEDS: CHLORHEXADINE GLUC 2% CLOTH TP SCH (13:00)
[2018-07-03] MEDS: MUPIROCIN CA NASAL 2% 1GM TUBE NS SCH (13:00)
--- NOTE | 2018-07-03 13:29 | NUR ---
ADMINISTERED SCHEDULED MAGNESIUM, PT TOLERATED WELL. PT REFUSED ALL OTHER SCHEDULED MEDICATIONS. TORI ANTONIO GIVEN TO PT.
--- NOTE | 2018-07-03 13:30 | NUR ---
DR TAMAYO MADE AWARE OF BP 94/66. WILL RECEIVE ORDERS.
[2018-07-03] MEDS ORDERED: NACL 0.9% 250 ML IV ONE (13:35)
[2018-07-03 16:00] VITALS: BP 96/55
[2018-07-03] MEDS: SODIUM FERRIC GLUCONATE 125 MG in NACL 0.9% 100 ML IV SCH (16:52)
--- NOTE | 2018-07-03 17:08 | NUR ---
ADMINISTERED SCHEDULED MEDICATIONS, PT TOLERATED WELL. NO OTHER NEEDS AT THIS TIME.
[2018-07-03] MEDS: HYDROcodone/APAP 5/325 MG 1 TAB TAB PO PRN (18:27)
--- NOTE | 2018-07-03 19:10 | NUR ---
ENDORSED PT TO AMARIS FAULKNER FOR CONTINUITY OF CARE. PT STABLE.
--- NOTE | 2018-07-03 19:20 | NUR ---
RECEIVED ENDORSEMENT FROM ENEDINA JIANG RN DAYSHIFT NURSE AT BEDSIDE FOR CONTINUITY OF CARE, PT INSTABLE CONDITION.
[2018-07-03 20:00] VITALS: BP 78/51
--- NOTE | 2018-07-03 21:00 | NUR ---
PT TURNED , CHANGED AND REPOSITIONED. GIVEN DUE MEDS OF PROTONIX AND RIFAXIMIN WELL ROCEPHIN IV ABT. PT NATHANIEL ANY DISCOMFORT. BED LOW AND ALL FALLS PRECAUTIONS IN PLACE.
[2018-07-03 22:14] LABS: BASOPHILS % (AUTO) 0.4 % (0.0-2.0); EOSINOPHILS # (AUTO) 0.1 K/uL (0-0.4); EOSINOPHILS % (AUTO) 2.3 % (0.0-4.0); HEMATOCRIT 25.7 % (36-52); HEMOGLOBIN 8.9 g/dL (12.0-18.0); LYMPHOCYTES # (AUTO) 0.7 K/uL (2.0-11.5); LYMPHOCYTES % (AUTO) 16.5 % (20.5-51.1); MEAN CORPUSCULAR HEMOGLOBIN 37 pg (27-31); MEAN CORPUSCULAR HGB CONC 35 g/dL (33-37); MEAN CORPUSCULAR VOLUME 106.4 fL (80-94); MONOCYTES # (AUTO) 0.4 K/uL (0.8-1.0); MONOCYTES % (AUTO) 10.3 % (1.7-9.3); NEUTROPHILS # (AUTO) 2.9 K/uL (1.8-7.7); NEUTROPHILS % (AUTO) 70.5 % (42.2-75.2); PLATELET COUNT (AUTO) 30 K/uL (140-450); RED BLOOD CELL COUNT(AUTO) 2.42 MIL/uL (4.20-6.10); RED CELL DISTRIBUTION WIDTH 31.9 % (11.6-13.7); WHITE BLOOD COUNT (AUTO) 4.2 K/uL (4.8-10.8)
[2018-07-03 22:29] LABS: ANION GAP 9.2 (8-16); CARBON DIOXIDE 27.3 mmol/L (21-32); CREATININE 0.7 mg/dL (0.7-1.3); POTASSIUM 3.5 mmol/L (3.5-5.1)
[2018-07-03 22:36] LABS: MAGNESIUM 2.1 mg/dL (1.8-2.4); PHOSPHORUS 1.5 mg/dL (2.5-4.9)
[2018-07-04] VITALS: BP_SYST 105; BP_SYST 88; BP_DIAS 61; BP_DIAS 71
--- NOTE | 2018-07-04 00:55 | NUR ---
PT C/O 5/10 GENERALIZED PAIN, GIVEN PO/PRN NORCO.
[2018-07-04] MEDS: HYDROcodone/APAP 5/325 MG 1 TAB TAB PO PRN ×3 (00:57→21:36)
[2018-07-04] MEDS: GAUZE TP SCH ×2 (01:00→13:59)
[2018-07-04] MEDS: Z-GUARD PASTE TP SCH ×2 (01:00→10:33)
[2018-07-04] MEDS: HYDRAGUARD CREAM TP SCH ×2 (01:00→10:33)
--- NOTE | 2018-07-04 01:00 | NUR ---
PT IN BED ALL FALLS PRECAUTIONS IN PLACE, BED LOW AND SIDE RAILS UP X2. PT REMAINS ON WOUND BED. PT TURNED AND REPOSITIONED. PT V/S FOLLOWS T 97.8 P 104 R 20 B/P IS 90/60 02 93% ON ROOM AIR.
[2018-07-04 04:00] VITALS: BP 105/71
--- NOTE | 2018-07-04 06:00 | NUR ---
PT HAD BM X1 AND PICC LINE DRESSING SOILED WELL. PT TURNED, CHANGED AND REPOSITIONED PT GIVEN NEW LINENS AND NEW DRESSING FOR PICC LINE PROVIDED. PICC LINE FLUSHED PATENT AND LAB DRAWS DONE AT BEDSIDE.
[2018-07-04] MEDS: POTASSIUM CHL 20MEQ/D5-NS 1,000 ML IV SCH (06:01)
[2018-07-04 06:37] LABS: BASOPHILS % (AUTO) 0.2 % (0.0-2.0); EOSINOPHILS # (AUTO) 0.1 K/uL (0-0.4); EOSINOPHILS % (AUTO) 1.9 % (0.0-4.0); HEMOGLOBIN 8.9 g/dL (12.0-18.0); LYMPHOCYTES % (AUTO) 14.5 % (20.5-51.1); MEAN CORPUSCULAR HEMOGLOBIN 37 pg (27-31); MEAN CORPUSCULAR HGB CONC 34 g/dL (33-37); MEAN CORPUSCULAR VOLUME 107.4 fL (80-94); MONOCYTES # (AUTO) 0.8 K/uL (0.8-1.0); MONOCYTES % (AUTO) 12.7 % (1.7-9.3); NEUTROPHILS # (AUTO) 4.6 K/uL (1.8-7.7); NEUTROPHILS % (AUTO) 70.7 % (42.2-75.2); PLATELET COUNT (AUTO) 26 K/uL (140-450); RED BLOOD CELL COUNT(AUTO) 2.42 MIL/uL (4.20-6.10); RED CELL DISTRIBUTION WIDTH 32.5 % (11.6-13.7); WHITE BLOOD COUNT (AUTO) 6.6 K/uL (4.8-10.8)
[2018-07-04 07:02] LABS: MAGNESIUM 1.9 mg/dL (1.8-2.4); PHOSPHORUS 1.6 mg/dL (2.5-4.9)
[2018-07-04 07:06] LABS: ANION GAP 10.8 (8-16); CARBON DIOXIDE 26.2 mmol/L (21-32); CREATININE 0.8 mg/dL (0.7-1.3)
--- NOTE | 2018-07-04 07:30 | NUR ---
REPORT GIVEN TO MARTHA RN DAYSHIFT NURSE AT BEDSIDE FOR CONTINUITY OF CARE.
--- NOTE | 2018-07-04 07:31 | NUR ---
RECEIVED BEDSIDE REPORT FROM SR. UNIX SYSTEM ADMINISTRATOR NURSE AT BEDSIDE FOR CONTINUITY OF CARE. PT LETHARGIC. RECEIVED CALL FROM LAB AT 0728, BLOOD GLUCOSE 43. WILL ASSESS AND MEDICATE NEEDED. NO SIGNS OF DISTRESS NOTED AT THE MOMENT ON ROOM AIR. PICC LINE INTACT, ASYMPTOMATIC AND INFUSING IVF WELL. VERBALIZED PLAN OF CARE TO PATIENT, HE DID NOT VERBALIZE UNDERSTANDING. UPDATED BOARD. SAFETY AND ISOLATION PRECAUTIONS IN PLACE, CALL STILES WITHIN REACH. BED IN LOWEST POSITION, BED ALARM ON. WILL CONTINUE TO MONITOR PATIENT. Addendum: 07/04/18 at 1535 by Douglas Lundy RN BLOOD GLUCOSE OF 47.
[2018-07-04] MEDS: DEXTROSE 50% 50 ML SYR IVP PRN (07:39)
--- NOTE | 2018-07-04 07:39 | NUR ---
GLUCOSE CHECK AT BEDSIDE 43, DEXTROSE GIVEN. PATIENT TOLERATED IT. WILL REASSESS PATIENT AND CHECK GLUCOSE LEVEL. WILL CONTINUE TO MONITOR PATIENT.
[2018-07-04 08:00] VITALS: BP 102/70
--- NOTE | 2018-07-04 08:04 | NUR ---
DOCTORS DOING ROUNDS. PATIENT CURRENTLY GETTING FED BY SHELL REPRINT OPERATOR. PATIENT MORE AWAKE AND ALERT. ALL NEEDS MET AT THIS TIME. WILL CONTINUE TO MONITOR PATIENT.
[2018-07-04] MEDS: FOLIC ACID 1 MG TAB PO SCH (09:00)
[2018-07-04] MEDS: SPIRONOLACTONE 50 MG TAB PO SCH (09:00)
[2018-07-04] MEDS: RIFAXIMIN 550 MG TAB PO SCH ×2 (09:00→21:35)
[2018-07-04] MEDS: THIAMINE 100 MG TAB PO SCH (09:00)
[2018-07-04] MEDS: POTASSIUM CHLORIDE 20% 40 MEQ/15 ML UDC PO SCH (09:00)
[2018-07-04] MEDS: MULTIVITAMIN/MINERALS 1 TAB PO SCH (09:00)
[2018-07-04] MEDS: PANTOPRAZOLE 40 MG INJ VIAL IVP SCH ×2 (09:21→21:35)
--- NOTE | 2018-07-04 09:21 | NUR ---
PATIENT REFUSED ALL ORAL MEDICATIONS, INFORMED HIM OF NECESSITY FOR THEM. PATIENT STATED THAT HE WAS "TIRED, AND WANTED TO REST". PATIENT DID AGREE TO IV MEDICATION. ORDERED MEDICATION GIVEN. PATIENT TOLERATED IT. ALL NEEDS MET AT THIS TIME. NO COMPLAINTS NOTED. RESPIRATIONS EVEN AND UNLABORED ON ROOM AIR. SAFETY AND CONTACT PRECAUTIONS IN PLACE, CALL LIGHT WITHIN REACH, WILL CONTINUE TO MONITOR PATIENT.
--- NOTE | 2018-07-04 10:25 | NUR ---
PATIENT HAD BM. PATIENT CLEANED, CHANGED, LINENS CHANGED, PATIENT REPOSITIONED IN BED TO OFFSET PRESSURE AREAS. PATIENT STATED HE WANTED TO BE "LEFT ALONE, SO I CAN REST". RN VERBALIZED UNDERSTANDING. SAFETY, CONTACT, PRECAUTIONS IN PLACE, CALL LIGHT WITHIN REACH, WILL CONTINUE TO MONITOR PATIENT.
--- NOTE | 2018-07-04 10:49 | NUR ---
BREANNE FROM CT CALLED ABOUT CT PROCEDURE. INFORMED HIM OF PATIENT'S WISHES AND CURRENT SLEEPING MOOD. BREANNE AGREED WILL TALK TO PATIENT AFTER LUNCH. SAFETY AND CONTACT PRECAUTIONS IN PLACE, CALL LIGHT WITHIN REACH, WILL CONTINUE TO MONITOR PATIENT.
[2018-07-04 12:00] VITALS: BP 90/63
--- NOTE | 2018-07-04 12:05 | NUR ---
PATIENT SLEEPING BUT AROUSABLE. ASKED PATIENT FOR CONSENT FOR CT. PATIENT DID NOT ANSWER. AFTER MULTIPLE ATTEMPS TO OBTAIN CONSENT, PATIENT JUST STATED, "THANK YOU, MA'AM". SHIP'S OFFICER, NATALY FARRAR. BREANNE, ACCESS SERVICES LIBRARIAN CALLED, UPDATED HIM ABOUT PATIENT'S ANSWER. HE VERBALIZED UNDERSTANDING. WILL CONTINUE TO MONITOR PATIENT.
[2018-07-04] MEDS: CHLORHEXADINE GLUC 2% CLOTH TP SCH (13:59)
[2018-07-04] MEDS: MUPIROCIN CA NASAL 2% 1GM TUBE NS SCH (13:59)
--- NOTE | 2018-07-04 13:59 | NUR ---
CALLED CLEANING STAFF SUPERVISORSTACY RAYMUNDO AT EXT: [phone], INFORMED HIM OF PATIENT'S AGREEABLE TO SIGNING CONSENT BUT STATED "I'M NOT ALL AWAKE YET TO SIGN". PATIENT WAS WEAK, CONSENT NOT OBTAINED AT THIS MOMENT. PATIENT FURTHER STATED THAT HE "DID NOT WANT IT DONE TODAY, MAYBE TOMORROW". BREANNE AWARE, INFORMED DR. TAMAYO, SHE IS ALSO AWARE. SAFETY AND CONTACT PRECAUTIONS IN PLACE, CALL LIGHT WITHIN REACH, WILL CONTINUE TO MONITOR PATIENT.
--- NOTE | 2018-07-04 14:35 | NUR ---
PATIENT MEDICATED AT 1421 FOR GENERALIZED PAIN 09/13. BP 95/65 HR 94. PATIENT TOLERATED IT WELL. PATIENT HAD LARGE SOFT BM. PATIENT CLEANED AND CHANGED AND REPOSITIONED FOR COMFORT AND TO OFFLOAD PRESSURE AREAS. PATIENT NOW SETTLE IN BED, NO COMPLAINTS AT THIS TIME. SAFETY AND CONTACT PRECAUTIONS IN PLACE, CALL LIGHT WITHIN REACH, WILL CONTINUE TO MONITOR PATIENT.
[2018-07-04 16:00] VITALS: BP 90/58
--- NOTE | 2018-07-04 16:10 | NUR ---
BP 90/[address] TAMAYO AWARE. STATED THAT IF PATIENT'S BP SYSTOLIC < 90, INFORM RESIDENT TO BOLUS PATIENT. RN VERBALIZED UNDERSTANDING. PATIENT NOW RESTING IN BED WITH EYES CLOSED, NO COMPLAINTS AT THIS TIME. WILL CONTINUE TO MONITOR PATIENT.
[2018-07-04] MEDS: SODIUM FERRIC GLUCONATE 125 MG in NACL 0.9% 100 ML IV SCH (16:34)
--- NOTE | 2018-07-04 18:10 | NUR ---
PATIENT HAD BM. PATIENT CLEANED, CHANGED, LINENS CHANGED, PATIENT REPOSITIONED IN BED TO OFFSET PRESSURE AREAS. PATIENT NOW RESTING IN BED, NO COMPLAINTS AT THIS TIME. SAFETY, CONTACT, PRECAUTIONS IN PLACE, CALL LIGHT WITHIN REACH, WILL CONTINUE TO MONITOR PATIENT.
--- NOTE | 2018-07-04 19:23 | NUR ---
GAVE REPORT TO PSYCHOLOGIST EXPERIMENTAL RN AT BEDSIDE FOR CONTINUITY OF CARE. PATIENT RESTING WITH EYES CLOSED, IN STABLE CONDITION.
--- NOTE | 2018-07-04 19:24 | NUR ---
RECEIVED ENDORSEMENT OF CARE FROM MARTHA RN DAYSHIFT NURSE, PT IN STABLE CONDITION IN BED ALL SAFETY AND CONTACT PRECAUTIONS N PLACE.
--- NOTE | 2018-07-04 20:21 | NUR ---
PT IN BED ALL FALLS AND CONTACT PRECAUTIONS N PLACE. PT AOX2-3. PT WAS TURNED , CHANGED AND REPOSITIONED. PITTING EDEMA IN LOWER LEGS +4. PT HAD A SMALL SOFT BM, Z GUARD APPLIED TO BUTTOCKS . V/S FOLLOWS T 97.9 P 95 R 18 B/P 112/73.
[2018-07-04 20:25] VITALS: BP 112/73
[2018-07-04] MEDS: NACL 0.45% 1,000 ML IV SCH (20:41)
[2018-07-04] MEDS: BLOOD GLUCOSE MONITORING 1 DEV DEV FS SCH (21:20)
[2018-07-05] VITALS: BP 109/69
--- NOTE | 2018-07-05 00:22 | NUR ---
PT IN BED ALL FALLS AND CONTACT PRECAUTIONS IN PLACE, PT IS WET BUT REFUSES TO TURN. V/S FOLLOW T 97.0 P 92 R 18 B/P 109/69 02 96% SOME RELIEF NOTED FORM ERICKACO. ALL REQUESTED NEEDS ATTENDED.
[2018-07-05] MEDS: GAUZE TP SCH ×2 (01:31→13:29)
[2018-07-05] MEDS: Z-GUARD PASTE TP SCH ×2 (01:33→13:30)
[2018-07-05] MEDS: HYDRAGUARD CREAM TP SCH ×2 (01:33→13:30)
--- NOTE | 2018-07-05 02:29 | NUR ---
PT IN BED SLEEPING ALL CONTACT AND FALLS PRECAUTIONS IN PLACE.
[2018-07-05 04:00] VITALS: BP 106/71
--- NOTE | 2018-07-05 04:15 | NUR ---
PT IN BED AND REPOSITIONED SELF. PT DECLINES TO BE CHANGED. LINENS ARE SOILED , EVEN WITH ENCOURAGEMENT, PT REFUSES TO BE CHANGED. HE SAID IM TIRED I NEED REST I LIVE ON THE STREETS YOU KNOW. ASKED PT IF WE CAN RETURN IN A LITTE WHILE TO CHANGE HIM. PT SAID OK V/S FOLLOWS T 97.2 P 98 R 18 B/P 106/71 02 98% ON R/A.
[2018-07-05] MEDS: DEXTROSE 50% 50 ML SYR IVP PRN (06:02)
[2018-07-05] MEDS: BLOOD GLUCOSE MONITORING 1 DEV DEV FS SCH ×4 (06:06→21:52)
[2018-07-05] MEDS: NACL 0.45% 1,000 ML IV SCH (06:06)
--- NOTE | 2018-07-05 06:07 | NUR ---
BLOOD DRAWS AT BEDSIDE, FINGERSTICK IS 40, PT RECEIVED DEXTROSE IV PUSH ORDERED. AND GIVEN JUICE AT BEDSIDE. PT AWAKE AND AOX2 AT BASELINE. WILL CONTINUE TO MONITOR BLOOD SUGAR.
[2018-07-05 07:03] LABS: BASOPHILS % (AUTO) 0.4 % (0.0-2.0); EOSINOPHILS # (AUTO) 0.2 K/uL (0-0.4); EOSINOPHILS % (AUTO) 2.6 % (0.0-4.0); HEMOGLOBIN 9.2 g/dL (12.0-18.0); LYMPHOCYTES # (AUTO) 1.6 K/uL (2.0-11.5); LYMPHOCYTES % (AUTO) 18.7 % (20.5-51.1); MEAN CORPUSCULAR HEMOGLOBIN 37 pg (27-31); MEAN CORPUSCULAR HGB CONC 34 g/dL (33-37); MEAN CORPUSCULAR VOLUME 108.2 fL (80-94); MONOCYTES # (AUTO) 0.9 K/uL (0.8-1.0); MONOCYTES % (AUTO) 11.2 % (1.7-9.3); NEUTROPHILS # (AUTO) 5.6 K/uL (1.8-7.7); NEUTROPHILS % (AUTO) 67.1 % (42.2-75.2); PLATELET COUNT (AUTO) 34 K/uL (140-450); RED CELL DISTRIBUTION WIDTH 32.2 % (11.6-13.7); WHITE BLOOD COUNT (AUTO) 8.4 K/uL (4.8-10.8)
[2018-07-05 07:08] LABS: ANION GAP 8.2 (8-16); CARBON DIOXIDE 27.9 mmol/L (21-32); CREATININE 0.8 mg/dL (0.7-1.3); POTASSIUM 4.1 mmol/L (3.5-5.1)
[2018-07-05 07:09] LABS: MAGNESIUM 1.8 mg/dL (1.8-2.4); PHOSPHORUS 1.7 mg/dL (2.5-4.9)
--- NOTE | 2018-07-05 07:40 | NUR ---
FINGER RESTICK ID [id number] . PT DID NOT YET DRINK JUICE AT BEDSIDE. PT TOOK 1 SMALL BOX OF JUICE. ENDORSED TO AM SHIFT TO F/U WITH BLOOD SUGARS. CARE ENDORSED TO LIANET RN DAYSHIFT NURSES. PT IN BED RESTING BUT AROUSABLE TO LIGHT TOUCH.
--- NOTE | 2018-07-05 07:42 | NUR ---
RECEIVED HAND OFF REPORT FROM ESTIMATOR PROJECT MANAGER NURSE. PT AWAKE IN BED, AGITATED.
[2018-07-05] MEDS: DEXT 5% /NACL 0.9% 1,000 ML IV SCH ×2 (07:50→17:21)
--- NOTE | 2018-07-05 07:50 | NUR ---
D5NS IVF STARTED AT 60ML/HR PER ORDER, PICC LINE FLUSHED, SITE WNL, WILL CONTINUE TO MONITOR
[2018-07-05 08:00] VITALS: BP 94/58
--- NOTE | 2018-07-05 08:11 | NUR ---
FINGER STICK BLOOD SUGAR 64, PT ENCOURAGED TO EAT, BREAKFAST TRAY AT BEDSIDE, OFFERED TO HELP SIT UP TO EAT BUT PT SCREAMS "LEAVE ME ALONE, I WANT TO GET SOME SLEEP", EXPLAINED PREVIOUS LOW BLOOD SUGAR AND IMPORTANCE OF EATING TO KEEP GLUCOSE UP, PT STATES THAT HE WILL EAT.
[2018-07-05] MEDS: FOAM DRESSING TP SCH (09:00)
[2018-07-05] MEDS: SPIRONOLACTONE 50 MG TAB PO SCH (09:00)
[2018-07-05] MEDS: PANTOPRAZOLE 40 MG INJ VIAL IVP SCH ×2 (09:13→21:21)
[2018-07-05] MEDS: FOLIC ACID 1 MG TAB PO SCH (09:13)
[2018-07-05] MEDS: HYDROcodone/APAP 5/325 MG 1 TAB TAB PO PRN ×2 (09:14→22:12)
[2018-07-05] MEDS: MULTIVITAMIN/MINERALS 1 TAB PO SCH (09:14)
[2018-07-05] MEDS: THIAMINE 100 MG TAB PO SCH (09:14)
[2018-07-05] MEDS: POTASSIUM CHLORIDE 20% 40 MEQ/15 ML UDC PO SCH (09:19)
--- NOTE | 2018-07-05 09:45 | NUR ---
PROVIDED RADHA CARE TO CLIENT AFTER BOWEL MOVEMENT. AND WOUND CARE TO HIP WOUNDS. PT WAS IN ALOT OF PAIN WHILE PROVIDING CARE.
[2018-07-05] MEDS: RIFAXIMIN 550 MG TAB PO SCH ×2 (10:14→21:21)
--- NOTE | 2018-07-05 11:30 | NUR ---
FINGER STICK BLOOD GLUCOSE CHECK 76. PT LAYING ON RIGHT SIDE. PT REFUSES REPOSITIONING
[2018-07-05 12:00] VITALS: BP 100/68
--- NOTE | 2018-07-05 12:00 | NUR ---
PT REFUSING TO EAT BREAKFAST AND LUNCH. MULTIPLE STAFF MEMBERS HAVE OFFERED TO PROVIDE ASSISTANCE WITH EATING. PT REQUEST TO BE LEFT ALONE TO SLEEP
[2018-07-05] MEDS ORDERED: CHLO118S2 TP (12:17)
[2018-07-05] MEDS ORDERED: ZIN220 PO (12:17)
[2018-07-05] MEDS ORDERED: RIFA550T PO (12:17)
[2018-07-05] MEDS ORDERED: ZGUARD TP (12:17)
[2018-07-05] MEDS ORDERED: GLUC-805 FS (12:17)
[2018-07-05] MEDS ORDERED: Hydraguard TP (12:17)
[2018-07-05] MEDS ORDERED: FOLI1TAB90 PO (12:17)
[2018-07-05] MEDS ORDERED: SPIR50TA PO (12:17)
[2018-07-05] MEDS ORDERED: BACTNA NS (12:17)
[2018-07-05] MEDS ORDERED: PANT40PD7 IVP (12:17)
[2018-07-05] MEDS ORDERED: VITC500 PO (12:17)
[2018-07-05] MEDS ORDERED: MULT-1736 PO (12:17)
[2018-07-05] MEDS ORDERED: D50SYR IVP (12:17)
[2018-07-05] MEDS ORDERED: Foam Dressing TP (12:17)
[2018-07-05] MEDS ORDERED: Potassium Chloride 20% PO (12:17)
[2018-07-05] MEDS ORDERED: FERR325E14 PO (12:17)
[2018-07-05] MEDS ORDERED: Gauze TP (12:17)
[2018-07-05] MEDS ORDERED: THIA-34 PO (12:17)
[2018-07-05] MEDS ORDERED: ROC2I IV (12:21)
[2018-07-05] MEDS ORDERED: LACT10CA1 PO (12:25)
--- NOTE | 2018-07-05 13:00 | NUR ---
VITAL SIGNS TAKEN PT STABLE RESTING IN BED, PT STATED PAIN IS IMPROVING
[2018-07-05] MEDS: MUPIROCIN CA NASAL 2% 1GM TUBE NS SCH (13:29)
[2018-07-05] MEDS: CHLORHEXADINE GLUC 2% CLOTH TP SCH (13:29)
[2018-07-05] MEDS ORDERED: SODIUM PHOSPHATE 15 MMOLE in NACL 0.9% 250 ML IV SCH (13:30)
--- NOTE | 2018-07-05 13:44 | NUR ---
S.T. BEDSIDE SWALLOW EVAL COMPLETED See report. Pt refused all P.O. trials except for straw sips of water. No overt s/s aspiration observed w/ sip of water while inclined at 30 degrees due to pt's refusal to have HOB upright for P.O. intake. Pt refused P.O. trials solids and overall participation in bedside swallow eval. Recommend: 1) Continue diet and P.O. meds as tolerated. Pt's refusal of S.T. services does not make pt a strong rehab candidate. [facility] at this time. No further ST indicated at this time. Time [id number]
--- NOTE | 2018-07-05 14:44 | NUR ---
Interventional Pain Physician Note: Per Lazaro from [facility] , they don�t have a contract with [facility], unable to accept patient. Per Telma from [facility] , they don�t have a male bed available at this time. Per Tami from [facility] and [facility] , their director is reviewing inquiry and Tami will call me back with response.
--- NOTE | 2018-07-05 14:49 | NUR ---
Business Analyst Ecommerce Note: I faxed inquiry to [facility] and [facility]. I called and left a message for admission coordinator at [phone]. Per Chacho from [facility] , they don't have any male beds available at this time.
--- NOTE | 2018-07-05 15:32 | NUR ---
Hr Generalist Note: Per Michell from [facility] , they don't have any beds available at this time.
--- NOTE | 2018-07-05 15:40 | NUR ---
FREQUENT ROUNDING ON PT. PT RESTING IN BED NO COMPLAINTS OF PAIN. PT APPEARS IN NO APPARENT DISTRESS. WILL CONTINUE TO MONITOR.
--- NOTE | 2018-07-05 15:45 | NUR ---
Charrer Note: Per Princess from [facility] , their director of valuation (D.O.N) is currently in a meeting and is not able to ask director of valuation if they can accept patient or not. Princess stated she will call me back today with response.
--- NOTE | 2018-07-05 15:54 | NUR ---
Financial Sales Advisor Note: I faxed inquiry to [facility]. Per Saray from [facility] , they don't have a contract with [facility]. She reported they might be willing to do a letter of agreement (L.O.A.) with [facility]. She told me their preschool assistant director will review inquiry and Saray will call me back to let me know if patient is medically appropriate for their facility or not.
[2018-07-05 16:00] VITALS: BP 102/68
--- NOTE | 2018-07-05 17:15 | NUR ---
Marketing Content Specialist Note: Per Gretel from [facility] and [facility] , they cannot accept patient due to psychiatric medication and behavior concerns.
[2018-07-05] MEDS: SODIUM FERRIC GLUCONATE 125 MG in NACL 0.9% 100 ML IV SCH (17:20)
--- NOTE | 2018-07-05 17:50 | NUR ---
FREQUENT ROUNDING ON PT. PT ASLEEP IN BED. CHEST RISE AND FALL NOTED. PT APPEARS IN NO APPARENT DISTRESS. IVF D51/2NS RUNNING AT 60MLS/HR. WILL CONTINUE TO MONITOR
--- NOTE | 2018-07-05 19:37 | NUR ---
ENDORSED BIOLOGY INTERN NURSE. PT IN BED STABLE. NO APPARENT DISTRESS. IVF INFUSING AT 60MLS/HR
--- NOTE | 2018-07-05 19:40 | NUR ---
Received endorsement from AM shift RN; patient laying in bed, awake. Patient A/Ox3, able to make needs known, bed bound. Introduced self, updated board. No SOB or distress noted, on room air. IV site on right upper arm, PICC line, intact. Skin excoriation on perianal area. Bed in the lowest position, call light within reach. Initial assessment done. Will continue to monitor.
[2018-07-05 20:00] VITALS: BP 104/65
--- NOTE | 2018-07-05 20:25 | NUR ---
Vitals taken, due meds give, tolerated well. Noticed patient PICC line dressing was stained. Flushed and patent. Asked patient dressing can be changed; patient verbalized "Can you just do it later in the morning?". Will continue to monitor.
[2018-07-05] MEDS ORDERED: QUEtiapine FUMARATE 100 MG TAB PO SCH (21:00)
--- NOTE | 2018-07-05 21:15 | NUR ---
BM noted at this time; patient cleaned, chux and linens changed, Z-guard applied to perianal area. Repositioned, tolerated well.
--- NOTE | 2018-07-05 22:05 | NUR ---
Frequent checks made, patient is watching TV. No distress noted.
--- NOTE | 2018-07-05 23:30 | NUR ---
Vitals taken, patient asleep, visible chest rise and fall noted.
[2018-07-06] VITALS: BP 105/72
[2018-07-06] MEDS: GAUZE TP SCH ×2 (00:59→13:00)
[2018-07-06] MEDS: HYDRAGUARD CREAM TP SCH ×2 (01:00→13:00)
[2018-07-06] MEDS: Z-GUARD PASTE TP SCH ×2 (01:00→13:00)
--- NOTE | 2018-07-06 02:11 | NUR ---
Frequent rounds made, no distress noted.
[2018-07-06 04:00] VITALS: BP 98/72
--- NOTE | 2018-07-06 04:10 | NUR ---
Patient cleaned, linens and chux changed. Repositioned, tolerated well. Asked for some Jell-O.
[2018-07-06] MEDS: BLOOD GLUCOSE MONITORING 1 DEV DEV FS SCH ×4 (06:34→21:36)
[2018-07-06 07:02] LABS: BASOPHILS % (AUTO) 0.4 % (0.0-2.0); EOSINOPHILS # (AUTO) 0.1 K/uL (0-0.4); HEMATOCRIT 23.7 % (36-52); LYMPHOCYTES # (AUTO) 1.2 K/uL (2.0-11.5); LYMPHOCYTES % (AUTO) 18.7 % (20.5-51.1); MEAN CORPUSCULAR HEMOGLOBIN 37 pg (27-31); MEAN CORPUSCULAR HGB CONC 34 g/dL (33-37); MEAN CORPUSCULAR VOLUME 109.7 fL (80-94); MONOCYTES # (AUTO) 0.7 K/uL (0.8-1.0); MONOCYTES % (AUTO) 10.7 % (1.7-9.3); NEUTROPHILS # (AUTO) 4.5 K/uL (1.8-7.7); NEUTROPHILS % (AUTO) 68.2 % (42.2-75.2); PLATELET COUNT (AUTO) 25 K/uL (140-450); RED BLOOD CELL COUNT(AUTO) 2.16 MIL/uL (4.20-6.10); RED CELL DISTRIBUTION WIDTH 32.2 % (11.6-13.7); WHITE BLOOD COUNT (AUTO) 6.7 K/uL (4.8-10.8)
--- NOTE | 2018-07-06 07:15 | NUR ---
Endorsed patient to AM shift RN; patient in stable condition.
--- NOTE | 2018-07-06 07:28 | NUR ---
RECEIVED HAND OFF REPORT FROM SEALS ENGRAVER NURSE. PT ASLEEP IN BED. NOTABLE CHEST RISE AND FALL. PT APPEARS STABLE. WILL CONTINUE TO MONITOR.
[2018-07-06 07:30] LABS: ANION GAP 10.8 (8-16); CREATININE 0.7 mg/dL (0.7-1.3); MAGNESIUM 1.7 mg/dL (1.8-2.4); PHOSPHORUS 2.4 mg/dL (2.5-4.9); POTASSIUM 3.8 mmol/L (3.5-5.1)
[2018-07-06 08:00] VITALS: BP 93/62
--- NOTE | 2018-07-06 08:31 | NUR ---
Sound Assistant Note: I informed if patient needs physical therapy he cannot be discharge to a homeless retirement. Per , he will request another physical therapy evaluation today.
[2018-07-06] MEDS: SPIRONOLACTONE 50 MG TAB PO SCH (09:00)
--- NOTE | 2018-07-06 09:00 | NUR ---
PT AT PT BEDSIDE. PT IS UNABLE TO STAND. CHANGED PT LINEN AND CHUCKS PT HAD BOWEL MOVEMENT.
[2018-07-06] MEDS ORDERED: CHLO118S2 TP (09:45)
[2018-07-06] MEDS ORDERED: BACTNA NS (09:45)
[2018-07-06] MEDS ORDERED: QUET100T44 PO (09:48)
[2018-07-06] MEDS: MAG SULF 2000 MG/WATER PREMIX 50 ML IV SCH ×2 (10:10→13:18)
[2018-07-06] MEDS: PANTOPRAZOLE 40 MG INJ VIAL IVP SCH (10:11)
[2018-07-06] MEDS: POTASSIUM CHLORIDE 20% 40 MEQ/15 ML UDC PO SCH (10:11)
[2018-07-06] MEDS: MULTIVITAMIN/MINERALS 1 TAB PO SCH (10:11)
[2018-07-06] MEDS: THIAMINE 100 MG TAB PO SCH (10:11)
[2018-07-06] MEDS: ZINC SULF 220 MG CAP PO SCH (10:12)
[2018-07-06] MEDS: FOLIC ACID 1 MG TAB PO SCH (10:12)
[2018-07-06] MEDS: ASCORBIC ACID 500 MG TAB PO SCH (10:12)
[2018-07-06] MEDS: RIFAXIMIN 550 MG TAB PO SCH ×2 (10:14→21:36)
[2018-07-06] MEDS: HYDROcodone/APAP 5/325 MG 1 TAB TAB PO PRN (10:28)
--- NOTE | 2018-07-06 10:57 | NUR ---
It Programmer Note: Guevara Olivia from [facility] [phone] Addendum: 07/06/18 at 1101 by Krista Salgado SS Please disregard above note
--- NOTE | 2018-07-06 11:00 | NUR ---
PT ALLOWED TO PERFORM PICC LINE DRESSING CHANGE. PREVIOUS PICC LINE DRESSING WAS SOILED AND FALLING OFF. PT TOLERATED PICC LINE DRESSING CHANGE WELL. WITH NO COMPLAINTS OF PAIN.
--- NOTE | 2018-07-06 11:01 | NUR ---
Junior Network Engineer Note: [facility] , they are not accepting patients with [place] [facility] coverage. Per Jyothi from [facility] , they cannot accept patient due to seroquel. I left a message for charge master coordinator Geno from [facility] .
[2018-07-06 12:00] VITALS: BP 94/68
--- NOTE | 2018-07-06 12:05 | NUR ---
FREQUENT ROUNDING ON PT. PT IN BED LETHARGIC REFUSING HELP WITH HIS LUNCH. PERFORMED FINGERSTICK GLUCOSE CHECK ON PT BLOOD GLUCOSE WAS 78.
--- NOTE | 2018-07-06 12:40 | NUR ---
FREQUENT ROUNDING ON PT. PT NOON VITAL SIGNS TAKEN BP 94/68. PT VERY LETHARGIC NOT EATING HIS LUNCH. PT REQUESTING TO BE LEFT ALONE
[2018-07-06] MEDS: CHLORHEXADINE GLUC 2% CLOTH TP SCH (13:00)
[2018-07-06] MEDS ORDERED: SODIUM PHOSPHATE 15 MMOLE in NACL 0.9% 250 ML IV SCH (14:00)
[2018-07-06] MEDS: MUPIROCIN CA NASAL 2% 1GM TUBE NS SCH (15:33)
--- NOTE | 2018-07-06 15:43 | NUR ---
07/06/18 RD FOLLOW UP COMPLETED PLEASE REFER TO NUTRITION ASSESSMENT UNDER CARE ACTIVITY FOR ESTIMATED NUTRITIONAL NEEDS. 1. CONTINUE HEPATIC DIET TOLERATED 2. CONTINUE VITAMIN C AND ZINC FOR WOUND HEALING SUPPORT 3. ADD HEALTHY SHAKES BID 4. RD TO FOLLOW-UP 2-3 DAYS, HIGH RISK MARITZA TRAN, RD
[2018-07-06 16:10] VITALS: BP 93/62
[2018-07-06] MEDS: DEXT 5% /NACL 0.9% 1,000 ML IV SCH (16:39)
[2018-07-06] MEDS: SODIUM FERRIC GLUCONATE 125 MG in NACL 0.9% 100 ML IV SCH (17:38)
[2018-07-06] MEDS ORDERED: LORazepam 2 MG/ML VIAL IM/IVP PRN (18:30)
--- NOTE | 2018-07-06 19:32 | NUR ---
ENDORSED PT TO HORSESHOER AT BEDSIDE REPORT. PT IN BED REQUESTING TO BE LEFT ALONE. PT IS STABLE AND APPEARS IN NO APPARENT DISTRESS.
--- NOTE | 2018-07-06 19:33 | NUR ---
RECEIVED BEDSIDE REPORT FROM DAYSHIFT RN, PATIENT AWAKE AND ALERT BUT WANTS TO SLEEP. PICC LINE DRESSING CLEAN DRY AND INTACT, PATIENT IN STABLE CONDITION, NO SIGNS OF DISTRESS ON RA, WILL CONTINUE TO MONITOR.
[2018-07-06 20:00] VITALS: BP 92/58
[2018-07-06] MEDS ORDERED: QUEtiapine FUMARATE 100 MG TAB PO SCH (21:00)
--- NOTE | 2018-07-06 21:36 | NUR ---
ADMINISTERED SCHEDULED MEDICATION, PATIENT TOLERATED WELL. ALSO PROVIDED APPLE JUICE DUE TO BLOOD SUGAR OF 63, PATIENT DRANK THE APPLE JUICE AND MILK FROM HIS TRAY WELL. PATIENT HAS HAD A LOW APPETITE AND WE ARE ENCOURAGING INCREASED CONSUMPTION.
[2018-07-07] VITALS: BP 124/78
--- NOTE | 2018-07-07 | NUR ---
LINEN CHANGED PT REPOSITIONED ON TELEMETRY SR PT IS UNCOOPERATIVE, NOT SOB NOTED
[2018-07-07] MEDS: Z-GUARD PASTE TP SCH ×2 (01:00→11:01)
[2018-07-07] MEDS: HYDRAGUARD CREAM TP SCH ×2 (01:00→11:01)
[2018-07-07] MEDS: GAUZE TP SCH ×2 (01:00→11:01)
--- NOTE | 2018-07-07 03:00 | NUR ---
PT SLEEPING NOT DISTRESS NOTED ON TELEMETRY SR REMAIN STABLE AT THIS TIME
[2018-07-07 04:00] VITALS: BP 127/68
--- NOTE | 2018-07-07 05:00 | NUR ---
PT HAS A BIG BM CLEANED AND REPOSITIONED, PT PULL OUT A LITTLE THE PICC LINE DRESSING CHANGED PT UNCOOPERATIVE
--- NOTE | 2018-07-07 06:25 | NUR ---
SPOKE WITH DR FLORES AT BEDSIDE, PICC LINE MAY HAVE BECOME SLIGHTLY DISLODGED DURING DRESSING CHANGE. PT WAS UNCOOPERATIVE DURING DRESSING CHANGE. REQUESTED FOLLOW UP.
[2018-07-07] MEDS: BLOOD GLUCOSE MONITORING 1 DEV DEV FS SCH ×4 (06:34→21:05)
--- NOTE | 2018-07-07 06:42 | NUR ---
BLOOD SUGAR TEST 128 PT ON TELEMETRY SR
[2018-07-07 06:59] LABS: HEMATOCRIT 26.2 % (36-52); HEMOGLOBIN 8.9 g/dL (12.0-18.0); MEAN CORPUSCULAR HEMOGLOBIN 38 pg (27-31); MEAN CORPUSCULAR HGB CONC 34 g/dL (33-37); MEAN CORPUSCULAR VOLUME 111.8 fL (80-94); PLATELET COUNT (AUTO) 28 K/uL (140-450); RED BLOOD CELL COUNT(AUTO) 2.34 MIL/uL (4.20-6.10); RED CELL DISTRIBUTION WIDTH 32.6 % (11.6-13.7); WHITE BLOOD COUNT (AUTO) 9.4 K/uL (4.8-10.8)
--- NOTE | 2018-07-07 07:20 | NUR ---
PT WAS ENDORSED TO DAY SHIFT NURSE FOR CONTINUIITY OF CARE
--- NOTE | 2018-07-07 07:21 | NUR ---
SBAR REPORT RECEIVED FROM NIGHT RN AT PT BEDSIDE. PATIENT SEEN RESTING IN BED, NO ACUTE DISTRESS NOTED. PICC LINE ASSESSED, MODERATE BLEED NOTED AROUND DRESSING, PATIENT DOES NOT WANT DRESSING CHANGED AT THIS TIME, STATES HE WOULD LIKE TO HAVE IT CHANGED LATER. LINE IS PATENT WITH GOOD BLOOD RETURN. ALERT AND ORIENTED, MUMBLED SPEECH. BEDREST, BED ALARMS CHECKED. MODERATE EDEMA LOWER EXTREMITIES. ON ROOM AIR. CALL LIGHT WITHIN REACH. JAUNDICE EYES AND SKIN.
[2018-07-07 07:26] LABS: ANION GAP 9.6 (8-16); CARBON DIOXIDE 25.8 mmol/L (21-32); CREATININE 0.8 mg/dL (0.7-1.3); POTASSIUM 4.4 mmol/L (3.5-5.1)
[2018-07-07 07:27] LABS: BASOPHILS % (MANUAL) 0 % (0-2); EOSINOPHILS % (MANUAL) 1 % (0-4); LYMPHOCYTES % (MANUAL) 13 % (20-46); METAMYELOCYTES % 1 % (0-0); MONOCYTES % (MANUAL) 13 % (5-12); MYELOCYTES % 2 % (0-0)
[2018-07-07 07:30] LABS: ALBUMIN 0.9 g/dL (3.4-5.0); BILIRUBIN,DIRECT 9.5 mg/dL (0.0-0.3); TOTAL BILIRUBIN 11.3 mg/dL (0.0-1.0)
[2018-07-07 07:32] LABS: MAGNESIUM 2.4 mg/dL (1.8-2.4); PHOSPHORUS 2.9 mg/dL (2.5-4.9)
[2018-07-07 08:00] VITALS: BP 115/81
[2018-07-07] MEDS: PANTOPRAZOLE 40 MG INJ VIAL IVP SCH (09:53)
[2018-07-07] MEDS: FOLIC ACID 1 MG TAB PO SCH (09:54)
[2018-07-07] MEDS: RIFAXIMIN 550 MG TAB PO SCH ×2 (09:54→20:47)
[2018-07-07] MEDS: THIAMINE 100 MG TAB PO SCH (09:54)
[2018-07-07] MEDS: ZINC SULF 220 MG CAP PO SCH (09:54)
[2018-07-07] MEDS: ASCORBIC ACID 500 MG TAB PO SCH (09:54)
[2018-07-07] MEDS: MULTIVITAMIN/MINERALS 1 TAB PO SCH (09:54)
[2018-07-07] MEDS: SPIRONOLACTONE 50 MG TAB PO SCH (09:55)
--- NOTE | 2018-07-07 10:10 | NUR ---
PATIENT ASSISTED IN CHANGING OF POSITIONS. MODERATE YELLOW STOOL IN COLOR. OFFLOADED PRESSURE AREAS. LINENS CHANGED, CLEAN AND DRY. PATIENT C/O MODERATE PAIN, MD NOTIFIED, NEW ORDERS RECEIVED, TO FOLLOW.
[2018-07-07] MEDS ORDERED: MORPHINE SULFATE 2 MG/ML SYR IVP SCH (11:00)
--- NOTE | 2018-07-07 11:33 | NUR ---
Spoke with Irina BAKER from [facility] she informed me that starting 07/04/18 pt [place] not eligible with [place]. Notified Yulissa from admitting [facility] about this.
[2018-07-07 12:00] VITALS: BP 94/63
--- NOTE | 2018-07-07 12:36 | NUR ---
PATIENT SLEEPING. EASILY AWAKENS. NO ACUTE DISTRESS NOTED.
--- NOTE | 2018-07-07 13:28 | NUR ---
PATIENT TAKEN OFF UNIT FOR EGD PROCEDURE. NO ACUTE DISTRESS NOTED. VITALS WNL.
[2018-07-07] MEDS ORDERED: diphenhydrAMINE 50 MG/ML VIAL ONE (13:30)
[2018-07-07] MEDS: MIDAZOLAM 2 MG/2 ML VIAL ONE ×2 (13:41→14:25)
[2018-07-07] MEDS: fentaNYL 0.05 MG/ML VIAL ONE ×2 (13:41→14:25)
[2018-07-07] MEDS: METOCLOPRAMIDE 10 MG/2 ML INJ VIAL ONE ×2 (13:49→14:26)
--- NOTE | 2018-07-07 13:56 | NUR ---
Clinical faxed to [facility] .
[2018-07-07] MEDS ORDERED: PHYTONADIONE 10 MG/ML AMP SUBQ ONE (14:05)
--- NOTE | 2018-07-07 14:15 | NUR ---
PATIENT RETURNED FROM EGD, SPOKE WITH DR. CORTES, PREP FOR COLONOSCOPY TOMORROW. PATIENT ARRIVED ON GURNEY, LETHARGIC, AWAKENS TO MODERATE STIMULI. ON 2L NC, NO ACUTE RESPIRATORY DISTRESS NOTED.
[2018-07-07] MEDS ORDERED: ALBUMIN HUMAN 25% 100 ML IV SCH (14:30)
[2018-07-07] MEDS ORDERED: FUROSEMIDE 20 MG/2 ML VIAL IVP SCH (14:30)
--- NOTE | 2018-07-07 14:38 | NUR ---
Spoke with Telma from [facility] , they have no mcfp beds or male beds at this time.
--- NOTE | 2018-07-07 14:55 | NUR ---
Spoke with Cyndy from [facility] no mcfp beds available, same with [facility].
--- NOTE | 2018-07-07 14:59 | NUR ---
Per director insurance Yulissa from [facility], pt has [facility] Presumptive.
--- NOTE | 2018-07-07 15:06 | NUR ---
Spoke with Michell from [facility] no shelter beds available.
--- NOTE | 2018-07-07 15:10 | NUR ---
PATIENT HAVING ULTRASOUND AT BEDSIDE. LETHARGIC, AWAKENS TO MODERATE STIMULI. NO ACUTE DISTRESS NOTED.
--- NOTE | 2018-07-07 15:12 | NUR ---
Clinicals faxed to [facility] .
[2018-07-07] MEDS ORDERED: PHYTONADIONE 10 MG in NACL 0.9% 50 ML IV SCH (15:30)
[2018-07-07] MEDS: DEXT 5% /NACL 0.9% 1,000 ML IV SCH (15:44)
[2018-07-07 16:00] VITALS: BP 127/91
[2018-07-07] MEDS: SENNA 8.6 MG TAB PO SCH (17:31)
[2018-07-07] MEDS: SODIUM FERRIC GLUCONATE 125 MG in NACL 0.9% 100 ML IV SCH (17:31)
[2018-07-07] MEDS: DEXTROSE 50% 50 ML SYR IVP PRN (17:31)
--- NOTE | 2018-07-07 17:53 | NUR ---
1729: PATIENT BLOOD SUGAR CHECKED AT BEDSIDE, 62. PATIENT RESTING IN BED, LETHARGIC, AWAKENS TO LIGHT STIMULI. 1740: AMP DEXTROSE 50% ADMINISTERED. BLOOD SUGAR RECHECKED, 141. PATIENT AWAKENS TO LIGHT STIMULI. NO ACUTE DISTRESS NOTED. 1741: DR. FLORES NOTIFIED, CONTINUE WITH CURRENT PLAN OF CARE. CONTINUE CURRENT IVF RATE D5NS @ 40ML/HR.
--- NOTE | 2018-07-07 18:42 | NUR ---
PATIENT ALERT AND ORIENTED, CONSENTED FOR CT WITH CONTRAST. CT NOTIFIED, PATIENT TO BE KEPT NPO AT THIS TIME.
--- NOTE | 2018-07-07 19:24 | NUR ---
SBAR REPORT GIVEN TO NIGHT RN AT PT BEDSIDE. NO ACUTE DISTRESS NOTED. CT AND RN NOTIFIED OF PATIENT NEED FOR NPO FOR PROCEDURE.
--- NOTE | 2018-07-07 19:25 | NUR ---
RECEIVED SBAR FROM JAGDISH GLEZ. PT IS AAO X4. ON ROOM AIR RESPIRATIONS ARE EQUAL AND UNLABORED. IV ON R PICC LINE DOUBLE LUMEN. NSD5 AT 40M/H. PT WITH ULCER ON LEFT HIP MILLIE. RADHA EXCORIATION. PT USES URINAL BUT HAS HAD EPISODES OF INCONTINENT. PT ON CONTACT ISOLATION FOR MRSA. PT WILL HAVE BOWEL PREP FOR COLONOSCOPY TOMORROW. NPO AFTER MIDNIGHT. ON FALL PRECAUTION. PLAN OF CARE DISCUSSED WITH PT. CALL LIGHT WITHIN REACH.
--- NOTE | 2018-07-07 20:00 | NUR ---
BLOOD GLUCOSE IS 59 ORANGE JUICE WITH SUGAR GIVEN WILL RECHECK. PT IN STABLE CONDITION. NO S/S OF HYPOGLYCEMIA
--- NOTE | 2018-07-07 20:47 | NUR ---
RECHECKED BLOOD SUGAR 75. DUE MEDICATIONS GIVEN PT REFUSED LACTULOSE. PT TOOK A FEW SIPS OF MG CITRATE. WILL CONTINUE TO MONITOR. PT VERBALIZED UNDERSTANDING FOR THE NEED OF TAKING IT. MUST FINISH BOTTLE.
[2018-07-07] MEDS ORDERED: MAGNESIUM CITRATE 300 ML BTL PO SCH (21:00)
[2018-07-07] MEDS: LACTULOSE 20 GM/30 ML UDC PO SCH (21:00)
--- NOTE | 2018-07-07 21:30 | NUR ---
PT HAS NOT DRANK MG CITRATE. INFORMED PT IMPORTANCE OF TAKING FOR THE PROCEDURE. VERBALIZED HE WILL DRINK IT. AND FOLLOWS TO CLOSE EYES. PT TO DRINK CONTRAST FOR CT. PT STATES, "I DONT KNOW ABOUT DRINKING THAT ITS A LOT." EDUCATED PT ON REASON FOR PROCEDURE VERBALIZED UNDERSTANDING. WILL CONTINUE TO MONITOR.
--- NOTE | 2018-07-07 22:15 | NUR ---
PT HAS NOT DRANK MG CITRATE OR CONTRAST FOR CT. DR MOORE IN TO EXPLAIN REASON FOR NEED OF PROCEDURE PT VERBALIZED UNDERSTANDING. WILL TAKE IT AT HIS OWN PACE. WILL CONTINUE TO MONITOR. CALL LIGHT WITHIN REACH.
[2018-07-08] VITALS: BP 105/85
--- NOTE | 2018-07-08 | NUR ---
VITAL SIGNS ARE WITHIN NORMAL LIMITS. PT DENIES ANY SOB OR PAIN AT THIS TIME. PT DRANK ABOUT 1/4 OF MG CITRATE HAS HAD ONE LIQUID BM. WILL CONTINUE TO MONITOR.
[2018-07-08] MEDS: GAUZE TP SCH ×2 (00:22→13:00)
[2018-07-08] MEDS: Z-GUARD PASTE TP SCH ×2 (00:23→13:00)
[2018-07-08] MEDS: HYDRAGUARD CREAM TP SCH ×2 (00:23→13:00)
--- NOTE | 2018-07-08 03:40 | NUR ---
PT SOB WITH LABORED BREATHING. O2 SAT ON ROOM AIR 76%. NOTIFIED DR MOORE. WILL ORDER CXR AND DR TO SEE PATIENT. PT PLACED ON NC.
--- NOTE | 2018-07-08 03:46 | NUR ---
DR IN PT ROOM. O2 SAT 89% ON NC 3L. TO ORDER BREATHING TREATMENT. RT NOTIFIED. WILL CONTINUE TO MONITOR.
[2018-07-08] MEDS ORDERED: ALBUTEROL SULFATE/IPRATROPIU 3 ML SOL IH PRN (04:00)
--- NOTE | 2018-07-08 04:10 | NUR ---
RT AT BEDSIDE. PT RECEIVING BREATHING TREATMENT. WILL CONTINUE TO MONITOR
--- NOTE | 2018-07-08 05:12 | NUR ---
PT REFUSING TO DRINK CONTRAST AT THIS TIME. STATES "I FEEL BLOATED I CANNOT DRINK THAT. THERE NOTHING YOU CAN DO TO HELP ME FEEL RELIEF." PT PICC LINE DRESSING IS SOILED. PT REFUSING DRESSING CHANGE OFFERED TO COME BACK AT A LATER TIME. PT REFUSED STATES. "YOU BEEN CHANGING IT MORE THAN ONCE A DAY. ILL LET THEM CHANGE WHEN I AM DISCHARGE." INFORMED PT REASON FOR CHANGING DRESSING BUT STILL REFUSING. WILL NOTIFY AND ATTEMPT AT A LATER TIME. CALL LIGHT WITHIN REACH.
--- NOTE | 2018-07-08 06:10 | NUR ---
SPOKE WITH KAREN FROM RADIOLOGY. PT REFUSED TO TAKE PO CONTRAST. AND PT ON BOWEL PREP FOR COLONOSCOPY. WILL HOLD ON TO CONTRAST UNTIL AFTER COLONOSCOPY . DR INGRAM
[2018-07-08 06:44] LABS: BASOPHILS % (AUTO) 0.6 % (0.0-2.0); EOSINOPHILS # (AUTO) 0.2 K/uL (0-0.4); EOSINOPHILS % (AUTO) 2.2 % (0.0-4.0); HEMATOCRIT 26.4 % (36-52); HEMOGLOBIN 9.1 g/dL (12.0-18.0); LYMPHOCYTES # (AUTO) 0.9 K/uL (2.0-11.5); LYMPHOCYTES % (AUTO) 10.6 % (20.5-51.1); MEAN CORPUSCULAR HEMOGLOBIN 39 pg (27-31); MEAN CORPUSCULAR HGB CONC 35 g/dL (33-37); MONOCYTES # (AUTO) 1.2 K/uL (0.8-1.0); MONOCYTES % (AUTO) 14.5 % (1.7-9.3); NEUTROPHILS # (AUTO) 5.9 K/uL (1.8-7.7); NEUTROPHILS % (AUTO) 72.1 % (42.2-75.2); PLATELET COUNT (AUTO) 23 K/uL (140-450); RED BLOOD CELL COUNT(AUTO) 2.34 MIL/uL (4.20-6.10); WHITE BLOOD COUNT (AUTO) 8.1 K/uL (4.8-10.8)
[2018-07-08 06:57] LABS: PROTHROMBIN TIME 15.4 secs (10.8-13.4)
[2018-07-08 07:00] LABS: ANION GAP 13.3 (8-16); CARBON DIOXIDE 23.2 mmol/L (21-32); CREATININE 0.7 mg/dL (0.7-1.3); POTASSIUM 3.5 mmol/L (3.5-5.1)
[2018-07-08] MEDS: ALBUTEROL SULFATE/IPRATROPIU 3 ML SOL IH SCH ×3 (07:00→20:51)
[2018-07-08 07:01] LABS: MAGNESIUM 2.3 mg/dL (1.8-2.4); PHOSPHORUS 3.7 mg/dL (2.5-4.9)
--- NOTE | 2018-07-08 07:20 | NUR ---
GAVE BEDSIDE REPORT TO YAZMIN GLEZ. PT ENDORSED IN STABLE CONDITION. AWARE OF NPO STATUS FOR COLONOSCOPY TODAY.
[2018-07-08] MEDS: BLOOD GLUCOSE MONITORING 1 DEV DEV FS SCH ×4 (07:30→21:05)
[2018-07-08 08:00] VITALS: BP 103/77
--- NOTE | 2018-07-08 08:19 | NUR ---
RECEIVED PT REPORT FROM UNIVERSITY SERVICES PROGRAM ASSOCIATE NURSE, PT IS ASLEEP IN BED WITH HIS HEAD COVERED WITH BLANKET. PT IS ON 2 L O2 NC. 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 PT HAS A RUE DOUBLE LUMEN PICC LINE, INFUSING D5NS 40 ML/HR. PT IS INCONTINENT. PT IS CURRENTLY NPO FOR COLONOSCOPY PROCEDURE TODAY, AND HAS DRANK A VERY SMALL AMOUNT OF GOLYTELY, PER UNIVERSITY SERVICES PROGRAM ASSOCIATE NURSE. HE DID HAVE A LIQUID BM AT UNIVERSITY SERVICES PROGRAM ASSOCIATE, YELLOW IN COLOR. FALL PRECAUTIONS AND CONTACT ISOLATION IN PLACE. CALL LIGHT WITHIN REACH. WILL CONTINUE TO MONITOR.
[2018-07-08] MEDS: FOAM DRESSING TP SCH (09:00)
--- NOTE | 2018-07-08 09:08 | NUR ---
Spoke with lory from [facility] she will call me after 1000 if they will have a bed available for the pt.
--- NOTE | 2018-07-08 09:33 | NUR ---
PT WORKING WITH PHYSICAL THERAPY AT THIS TIME
--- NOTE | 2018-07-08 10:11 | NUR ---
Waiter Note: Late entry for 07/07/18: Per Julianna from [facility] , she will come and evaluate patient tomorrow 07/08/18. She is aware patient no longer has [place] Care coverage, he has [employer]. Per Charge Nurse Clau patient is not on isolation nor is on seroquel.
[2018-07-08] MEDS: PANTOPRAZOLE 40 MG INJ VIAL IVP SCH (10:45)
[2018-07-08] MEDS: FOLIC ACID 1 MG TAB PO SCH (10:46)
[2018-07-08] MEDS: ASCORBIC ACID 500 MG TAB PO SCH (10:46)
[2018-07-08] MEDS: LACTULOSE 20 GM/30 ML UDC PO SCH (10:46)
[2018-07-08] MEDS: ZINC SULF 220 MG CAP PO SCH (10:46)
[2018-07-08] MEDS: SPIRONOLACTONE 50 MG TAB PO SCH (10:46)
[2018-07-08] MEDS: THIAMINE 100 MG TAB PO SCH (10:47)
[2018-07-08] MEDS: SENNA 8.6 MG TAB PO SCH ×2 (10:47→12:23)
[2018-07-08] MEDS: MULTIVITAMIN/MINERALS 1 TAB PO SCH (10:47)
[2018-07-08] MEDS: RIFAXIMIN 550 MG TAB PO SCH ×2 (10:48→20:37)
--- NOTE | 2018-07-08 10:48 | NUR ---
Clinicals faxed to [facility] .
--- NOTE | 2018-07-08 11:54 | NUR ---
Spoke with Sienna BAKER from [facility], they don't have any prison beds or male bed at this time.
[2018-07-08] MEDS: DEXTROSE 50% 50 ML SYR IVP PRN (12:24)
[2018-07-08] MEDS: DEXT 5% /NACL 0.9% 1,000 ML IV SCH (12:33)
--- NOTE | 2018-07-08 12:45 | NUR ---
Fan Blade Truer Note: Per Julianna from [facility] , they can accept patient at their facility if he signs hospice consents. She reported they cannot accommodate patient if patient signs [facility] consents , made aware. Per Odessa from [facility] , patient signed hospice consents and they are going to look for an accepting group home facility, made aware.
--- NOTE | 2018-07-08 13:57 | NUR ---
PT REFUSED HHN TX.
--- NOTE | 2018-07-08 13:58 | NUR ---
NO SOB OR DISTRESS NOTED. WILL CONTINUE TO MONITOR.
[2018-07-08] MEDS ORDERED: HYDROcodone/APAP 5/325 MG 1 TAB TAB PO SCH (15:00)
--- NOTE | 2018-07-08 15:00 | NUR ---
PT OFF THE FLOOR FOR COLONOSCOPY
[2018-07-08] MEDS ORDERED: diphenhydrAMINE 50 MG/ML VIAL ONE (15:02)
[2018-07-08] MEDS ORDERED: MIDAZOLAM 2 MG/2 ML VIAL ONE ×2 (15:02)
[2018-07-08] MEDS ORDERED: fentaNYL 0.05 MG/ML VIAL ONE (15:02)
[2018-07-08] MEDS ORDERED: fentaNYL 0.05 MG/ML VIAL IVP SCH (15:50)
[2018-07-08] MEDS ORDERED: MIDAZOLAM 2 MG/2 ML VIAL IVP SCH (15:50)
[2018-07-08 16:00] VITALS: BP 93/69
--- NOTE | 2018-07-08 16:23 | NUR ---
PT BACK FROM COLONOSCOPY. BP 93/69, O2 88, HR 89, TEMP 97.7, RR 18. PT IS STABLE FOR BASELINE. Addendum: 07/08/18 at 1745 by Martha Aleman RN PT'S O2 UP TO 94% ON 2 L O2 NC
[2018-07-08] MEDS: SODIUM FERRIC GLUCONATE 125 MG in NACL 0.9% 100 ML IV SCH (17:24)
--- NOTE | 2018-07-08 17:43 | NUR ---
PT REPOSITIONED AND OPTIFOAM PLACED ON SACROCOCCYX. CALL LIGHT IS WITHIN REACH, FALL PRECAUTIONS IN PLACE. NO S/S OF ACUTE DISTRESS NOTED. WILL CONTINUE TO MONITOR.
--- NOTE | 2018-07-08 19:20 | NUR ---
NOTIFIED DR. MOORE ABOUT PT'S DECREASING PLATELET COUNT (FROM 28 TO 23).
--- NOTE | 2018-07-08 19:22 | NUR ---
PT ENDORSED TO CRIB TENDER NURSE IN STABLE CONDITION.
--- NOTE | 2018-07-08 19:23 | NUR ---
RECEIVED SBAR FROM YAZMIN GLEZ. PT IS AAO X2-3. ON nc 2l ARE EQUAL AND UNLABORED. IV ON R PICC LINE DOUBLE LUMEN. NSD5 AT 40M/H. 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 RADHA EXCORIATION. PT USES URINAL BUT HAS HAD EPISODES OF INCONTINENT. PT ON CONTACT ISOLATION FOR MRSA and HX OF SCABIES. PT ON FULL LIQUID DIET. ON FALL PRECAUTION. PLAN OF CARE DISCUSSED WITH PT. CALL LIGHT WITHIN REACH.
[2018-07-08] MEDS: sulfaSALAzine 500 MG TAB PO SCH (20:37)
[2018-07-08] MEDS: HYDROCORTISONE NA SUCC 100 MG/2 ML VIAL IV SCH (20:37)
--- NOTE | 2018-07-08 20:37 | NUR ---
PT VERY LETHARGIC WITH LABORED BREATHING AND COARSE BREATH SOUNDS. O2 SAT 98% ON 3L NC. RR 22 AND HR 101. PAGED RT. ONLY ADMINISTERED IV MEDICATION. WILL CONTINUE TO MONITOR
--- NOTE | 2018-07-08 20:50 | NUR ---
CALLED BY RN TO ASSESS PATIENT FOR INCREASED WORK OF BREATHING. RECEIVED PATIENT ON 3L NASAL CANNULA, PULSE OX SAT 81%. BREATH SOUNDS WHEEZING WITH COARSE CRACKLES. RESPIRATIONS LABORED. PATIENT LETHARGIC. HEART RATE ELEVATED FROM BASELINE TO 103. INCREASED FIO2 TO 5L, PULSE OX SAT 85%. AUDIBLE ORAL AIRWAY SECRETIONS. ORALLY SUCTIONED SMALL AMOUNT OF THIN, GREEN SECRETIONS. EMESIS BAG AT BEDSIDE FILLED WITH THIN, GREEN SECRETIONS. CALLED RNSHASHI AND DR. MOORE TO NOTIFY OF POSSIBLE ASPIRATION OF STOMACH CONTENTS DUE TO VOMITING. NASOTRACHEALLY SUCTIONED PATIENT WITHOUT INCIDENT. SUCTIONED LARGE AMOUNT OF THICK YELLOW AND THIN GREEN SECRETIONS. POST NTS, HEART RATE 101, PULSE OX 85%. PLACED PATIENT ON 10L OXYMIZER. PULSE OX 90%, HEART RATE 102. WILL CONTINUE TO MONITOR.
[2018-07-08] MEDS ORDERED: SENNA 8.6 MG TAB PO SCH (21:00)
[2018-07-08] MEDS: PIPER/TAZO 3.375GM/D5W PREMIX 50 ML IV SCH (21:52)
[2018-07-08] MEDS ORDERED: PIPERACILLIN/TAZOBACTAM 3.375 GM VIAL IV ONE (22:04)
--- NOTE | 2018-07-08 22:16 | NUR ---
PT RECEIVED BREATHING TREATMENT AND WAS SUCTION BY RT POSSIBLE ASPIRATION. SUCTION GREEN SECRETIONS. DR ORDERED IV ANTIBIOTIC AND CXR. PT NOW O2 SAT 91% ON 10L O2 OXIMIZER. WILL CONTINUE TO MONITOR.
--- NOTE | 2018-07-08 22:22 | NUR ---
RADIOLOGY AT BEDSIDE FOR CHEST XR. SUCTION AT BEDSIDE HOB AT 45 DEGREES. WILL CONTINUE TO MONITOR.
--- NOTE | 2018-07-08 23:22 | NUR ---
PT MORE AWAKE. AAO X2. O2 SAT 90% ON 10L 02. CLEANED AND REPOSITION PT. ASSISTED PT WITH DRINKING MILK SHAKE PT TOLERATED WELL. ALL NEEDS MET AT THIS TIME. WILL CONTINUE TO MONITOR.
[2018-07-09] VITALS: BP 112/75
--- NOTE | 2018-07-09 00:10 | NUR ---
PATIENT AWAKE, APPEARS MORE ALERT; TALKING. HEART RATE 94, PULSE OX SAT 92% ON 1OL OXYMIZER. WILL CONTINUE TO MONITOR.
--- NOTE | 2018-07-09 00:22 | NUR ---
CHANGED PICC LINE DRESSING WAS SATURATED WITH BLOOD. PT TOLERATED WELL. NO S/S OF DISTRESS. ALL NEEDS MET AT THIS TIME. WILL CONTINUE TO MONITOR. CALL LIGHT IS WITHIN REACH.
[2018-07-09] MEDS: HYDRAGUARD CREAM TP SCH (01:07)
[2018-07-09] MEDS: GAUZE TP SCH (01:07)
[2018-07-09] MEDS: Z-GUARD PASTE TP SCH (01:07)
--- NOTE | 2018-07-09 02:46 | NUR ---
PT SLEEPING COMFORTABLY RESPIRATIONS RISE SYMMETRICAL. NO S/S OF DISTRESS.
[2018-07-09] MEDS ORDERED: PIPERACILLIN/TAZOBACTAM 3.375 GM VIAL IV ONE (04:12)
[2018-07-09] MEDS: sulfaSALAzine 500 MG TAB PO SCH (04:16)
[2018-07-09] MEDS: PIPER/TAZO 3.375GM/D5W PREMIX 50 ML IV SCH (04:16)
--- NOTE | 2018-07-09 04:16 | NUR ---
ZOSYN NOW INFUSING PER ORDERS. AZULFIDINE NOT GIVEN. PT WAS LETHARGIC. WILL MAKE DR AWARE.
--- NOTE | 2018-07-09 05:55 | NUR ---
PT CLEANED AND REPOSITION FOR COMFORT. NO S/S OF DISTRESS. CALL LIGHT WITHIN REACH.
[2018-07-09] MEDS: BLOOD GLUCOSE MONITORING 1 DEV DEV FS SCH (06:23)
[2018-07-09 06:35] LABS: ANION GAP 11.9 (8-16); CARBON DIOXIDE 26.1 mmol/L (21-32); CREATININE 0.9 mg/dL (0.7-1.3)
[2018-07-09 07:03] LABS: BASOPHILS % (AUTO) 0.1 % (0.0-2.0); EOSINOPHILS % (AUTO) 0.1 % (0.0-4.0); HEMATOCRIT 26.4 % (36-52); HEMOGLOBIN 8.7 g/dL (12.0-18.0); LYMPHOCYTES # (AUTO) 0.6 K/uL (2.0-11.5); LYMPHOCYTES % (AUTO) 5.5 % (20.5-51.1); MEAN CORPUSCULAR HEMOGLOBIN 38 pg (27-31); MEAN CORPUSCULAR HGB CONC 33 g/dL (33-37); MEAN CORPUSCULAR VOLUME 114.6 fL (80-94); MONOCYTES # (AUTO) 1.2 K/uL (0.8-1.0); MONOCYTES % (AUTO) 11.1 % (1.7-9.3); NEUTROPHILS # (AUTO) 8.8 K/uL (1.8-7.7); NEUTROPHILS % (AUTO) 83.2 % (42.2-75.2); PLATELET COUNT (AUTO) 24 K/uL (140-450); RED CELL DISTRIBUTION WIDTH 31.7 % (11.6-13.7); WHITE BLOOD COUNT (AUTO) 10.5 K/uL (4.8-10.8)
--- NOTE | 2018-07-09 07:15 | NUR ---
RECEIVED BEDSIDE REPORT FROM AMARIS DUNLAP. PT STABLE, AWAKE, AND ALERT AND ORIENTED X3. NO SIGNS OF DISTRESS NOTED. DENIES PAIN OR SOB. NO REDNESS, SWELLING, OR INFLAMMATION NOTED ON IV SITE. CALL STILES WITHIN REACH. BED IN LOWEST POSITION. BED ALARM ON. SAFETY MEASURES IN PLACE. PLAN OF CARE REVIEWED.
[2018-07-09] MEDS: ALBUTEROL SULFATE/IPRATROPIU 3 ML SOL IH SCH (07:19)
--- NOTE | 2018-07-09 07:20 | NUR ---
SATURATION 98% ON SUPPLEMENTAL OXYGEN AT 10 LPM VIA OXYMIZER POST HHN THERAPY TITRATED FIO2 TO 8 LPM ENEDINA JIANG/RN NOTIFIED EDUCATION PROVIDED TO PATIENT ON OBTAINMENT OF SPUTUM SAMPLE SPECIMEN CUP PLACED ON PATIENT TABLE WITHIN REACH
[2018-07-09] MEDS ORDERED: BUDESONIDE 0.5 MG/2 ML NEBU INH SCH (07:30)
--- NOTE | 2018-07-09 07:34 | NUR ---
GAVE BEDSIDE REPORT TO DAY SHIFT RN. PT ENDORSED IN STABLE CONDITION. CALL LIGHT WITHIN REACH.
[2018-07-09 08:00] VITALS: BP 86/57
--- NOTE | 2018-07-09 08:30 | NUR ---
MD AWARE OF BP 89/61. WILL CONTINUE TO MONITOR.
[2018-07-09] MEDS ORDERED: NACL 0.9% 250 ML IV SCH (09:00)
[2018-07-09] MEDS: SPIRONOLACTONE 50 MG TAB PO SCH (09:00)
[2018-07-09] MEDS: LACTULOSE 20 GM/30 ML UDC PO SCH ×2 (09:00→10:42)
--- NOTE | 2018-07-09 09:05 | NUR ---
Audio Video Tech Note: Guevara Levine from [facility] , they can accept patient at their facility with [facility] [phone] services, and Odessa from [facility] made aware.
[2018-07-09] MEDS ORDERED: HYDROcodone/APAP 5/325 MG 1 TAB TAB PO PRN (10:35)
[2018-07-09] MEDS: ASCORBIC ACID 500 MG TAB PO SCH (10:42)
[2018-07-09] MEDS: PANTOPRAZOLE 40 MG INJ VIAL IVP SCH (10:42)
[2018-07-09] MEDS: FOLIC ACID 1 MG TAB PO SCH (10:43)
[2018-07-09] MEDS: HYDROCORTISONE NA SUCC 100 MG/2 ML VIAL IV SCH (10:43)
[2018-07-09] MEDS: ZINC SULF 220 MG CAP PO SCH (10:43)
[2018-07-09] MEDS: MULTIVITAMIN/MINERALS 1 TAB PO SCH (10:43)
[2018-07-09] MEDS: THIAMINE 100 MG TAB PO SCH (10:43)
[2018-07-09] MEDS: RIFAXIMIN 550 MG TAB PO SCH (10:44)
--- NOTE | 2018-07-09 10:50 | NUR ---
ADMINISTERED SCHEDULED MEDICATION, PT TOLERATED WELL. HELD SCHEDULED SPIRONOLACTONE FOR BP 85/[address] FLORES AWARE.
--- NOTE | 2018-07-09 12:04 | NUR ---
GAVE REPORT TO ERIS FROM [facility].
--- NOTE | 2018-07-09 12:34 | NUR ---
SPOKE WITH SHERRON FROM [facility], [phone]. SHE SAID THE PATIENT WILL GO TO [facility], [address] UNDER [address] HATFIELD. PHONE REPORT [phone]. HOSPICE WILL SET UP TRANSPORT. I INFORMED CHARAN GLEZDIRECTOR OF MEDIA NURSE.
[2018-07-09] MEDS ORDERED: AMOX-1000 PO (12:41)
--- NOTE | 2018-07-09 12:53 | NUR ---
S.T. REPEAT BEDSIDE SWALLOW EVAL NOT COMPLETED due to pt w/ DC orders to post-acute facility w/ hospice. Transport present to transfer pt. Physician order received, chart reviewed. Pt currently w/ full liquid diet order. Recommend ST bedside swallow eval upon arrival at post acute facility. Time 1233
--- NOTE | 2018-07-09 12:55 | NUR ---
GAVE REPORT TO AUTUMN FROM [facility].
--- NOTE | 2018-07-09 13:15 | NUR ---
D/C INSTRUCTIONS AND PAPERWORK GIVEN. PT VERBALIZED UNDERSTANDING. DISCHARGE PHOTOGRAPHS TAKEN. PT STABLE. PT PICKED UP BY [facility]. Addendum: 07/09/18 at 2020 by Hakeem Kwok RN PT REFUSED VACCINES.
[2018-07-23 08:21] LABS: FOLIC ACID < 2.10 ng/mL (>3.0)
== END 2018-07-09 13:15 | DRG 720 ==
LOC: MED 01:00 → MTU 04:11 → MIC 19:07 → MTU 07-02 16:44
PROVIDERS: ADMIT General Practice; ATTEND General Practice
PROC: 30233N1 Transfusion of Nonautologous Red Blood Cells into Peripheral Vein, Percutaneous Approach (ICD-10-PCS; principal; 2018-07-01)
PROC: 02HV33Z Insertion of Infusion Device into Superior Vena Cava, Percutaneous Approach (ICD-10-PCS; 2018-07-02)
PROC: B548ZZA Ultrasonography of Superior Vena Cava, Guidance (ICD-10-PCS; 2018-07-02)
PROC: 0DJ08ZZ Inspection of Upper Intestinal Tract, Via Natural or Artificial Opening Endoscopic (ICD-10-PCS; 2018-07-07)
PROC: 0D7G8ZZ Dilation of Left Large Intestine, Via Natural or Artificial Opening Endoscopic (ICD-10-PCS; 2018-07-08)
PROC: 0DBG8ZX Excision of Left Large Intestine, Via Natural or Artificial Opening Endoscopic, Diagnostic (ICD-10-PCS; 2018-07-08)
DX: A41.9 Sepsis, unspecified organism (principal); E43 Unspecified severe protein-calorie malnutrition; G93.41 Metabolic encephalopathy; K56.699 Other intestinal obstruction unspecified as to partial versus complete obstruction; E72.20 Disorder of urea cycle metabolism, unspecified; D69.6 Thrombocytopenia, unspecified; K70.30 Alcoholic cirrhosis of liver without ascites; K50.90 Crohn's disease, unspecified, without complications; K72.90 Hepatic failure, unspecified without coma; E83.42 Hypomagnesemia; B86 Scabies; D63.8 Anemia in other chronic diseases classified elsewhere; R65.20 Severe sepsis without septic shock; N39.0 Urinary tract infection, site not specified; K44.9 Diaphragmatic hernia without obstruction or gangrene; N18.9 Chronic kidney disease, unspecified; M45.9 Ankylosing spondylitis of unspecified sites in spine; F41.1 Generalized anxiety disorder; K70.31 Alcoholic cirrhosis of liver with ascites; F12.10 Cannabis abuse, uncomplicated; G47.00 Insomnia, unspecified; K76.0 Fatty (change of) liver, not elsewhere classified; D53.9 Nutritional anemia, unspecified; B95.62 Methicillin resistant Staphylococcus aureus infection as the cause of diseases classified elsewhere; D50.9 Iron deficiency anemia, unspecified; R74.0 Nonspecific elevation of levels of transaminase and lactic acid dehydrogenase [LDH]; F17.200 Nicotine dependence, unspecified, uncomplicated; E83.51 Hypocalcemia; F10.229 Alcohol dependence with intoxication, unspecified; J44.1 Chronic obstructive pulmonary disease with (acute) exacerbation; F43.22 Adjustment disorder with anxiety; E87.6 Hypokalemia; Z68.26 Body mass index [BMI] 26.0-26.9, adult; Z85.038 Personal history of other malignant neoplasm of large intestine; Z59.0 Homelessness; Z88.8 Allergy status to other drugs, medicaments and biological substances; Z79.899 Other long term (current) drug therapy; Z68.25 Body mass index [BMI] 25.0-25.9, adult; Z91.14 Patient's other noncompliance with medication regimen
CPT/HCPCS: 36415; 45381; 45386; 71045; 76705; 80048; 80053; 80076; 80305; 81001; 82140; 82150; 82272; 82553; 82607; 82746; 82948; 83036; 83540; 83605; 83690; 83735; 83880; 84100; 84443; 84484; 85025; 85045; 85610; 85730; 86886; 86900; 86901; 86920; 87040; 87070; 87081; 87086; 88305; 92610; 93005; 93925; 93970; 94640; 96365; 96375; 97110; 97164; 97530; 99291; A9153; C1751; C9113; G0480; G0482; J0696; J1200; J1720; J1885; J1940; J2001; J2060; J2250; J2270; J2543; J2765; J2916; J3010; J3411; J3430; J3475; J3480; J3490; J7030; J7042; J7060; J7131; J7620; J7626; P9016; P9046; Q0092